=== PATIENT | male | born 1950 | race Caucasian/White ===

== ENCOUNTER 2017-01-04 21:53 | Inpatient (IN) | payer MEDICAID ==
[~2017-01-04] VITALS: Ht 180.3 cm; Wt 61.2 kg
[~2017-01-04 21:53] MED LIST: ACET325T14 PO; AMLO10TA2 PO; AMLO5TAB4 PO; AMOX1TAB64 PO; ASPI-496 PO; ATOR10TA PO; ATOR10TA9 PO; BACL-19 PO; BUSP5TAB2 PO; CHOL4PAC2 PO; CIPR500T87 PO; CLON-364 PO; CYAN10005 PO; CYAN100T PO; CYCL5TAB PO; ERGO500017 PO; FLUO40CA9 PO; FLUT9.9S NS; FOLI-17 PO; HYDR-3138 PO; HYDR-3144 PO; HYDR12.58 PO; LAMO200T PO; LAMO200T3 PO; LAMO25TB2 PO; LEVE500T53 PO; LISI-170 PO; LITH150C PO; LITH300T22 PO; LITH600C PO; LORA-445 PO; LORA-446 PO; LURA60TA PO; MAGN400T26 PO; METR500T PO; MIRT30TA PO; MULT-257 PO; MULT-750 PO; NICO1PAT5 TD; OMEP20CA9 PO; OMEP40CA6 PO; ONDA4TAB10 PO; OXYC-229 PO; OXYC-302 PO; OXYC1TAB7 PO; OXYC1TAB9 PO; OXYC5TAB3 PO; PANT40TA3 PO; PANT40TA5 PO; POLY17PO5 PO; PROC10TA PO; QUET100T PO; RAME8TAB8 PO; RANI-276 PO; SUCR1ORA11 PO; SUCR1ORA2 PO; SUCR1TAB PO; TAMS-11 PO; THIA100T6 PO; TRAZ100T15 PO; VANC1VIA3 PO
[2017-01-04] MEDS ORDERED: SODIUM CHLORIDE 0.9% 1,000ML IVBOLUS ONE (23:00)
[2017-01-04 23:51] LABS: ASPARTATE AMINO TRANSFERASE 94 U/L (15-37); BLOOD UREA NITROGEN 8 mg/dL (7-18)
[2017-01-05] MEDS ORDERED: POTASSIUM CHLORIDE 20 MEQ TAB.ER.PRT PO ONE
[2017-01-05] MEDS ORDERED: THIAMINE 100 MG/ML, 2ML IM ONE
[2017-01-05] MEDS ORDERED: ONDANSETRON 2MG/ML, 2ML IVP PRN (01:00)
[2017-01-05] MEDS ORDERED: BISACODYL 10 MG SUPP PR PRN (01:00)
[2017-01-05 01:45] VITALS: BP 148/76
[2017-01-05] MEDS: D5%-0.45% NACL 1,000 ML IV SCH ×6 (02:36→20:56)
[2017-01-05] MEDS: LORazepam 2 MG/ML, 1ML IVPush PRN (02:43)
[2017-01-05] MEDS: MORPHINE SULFATE 4 MG/ML, 1ML IVPush PRN ×2 (02:43→15:57)
[2017-01-05] MEDS: HEPARIN 5,000 UNITS/ML, 1ML SQ SCH ×3 (02:43→17:13)
[2017-01-05] MEDS: QUETIAPINE 200 MG TABLET PO SCH ×2 (03:28→20:57)
[2017-01-05] MEDS: NS + 20MEQ KCL 1,000 ML IV SCH ×4 (03:28→22:26)
[2017-01-05] MEDS: NICOTINE 14MG/24 HR PATCH.TD24 TD SCH (03:29)
[2017-01-05 03:32] LABS: DAU SCREEN DISCLAIMER
[2017-01-05] MEDS: POTASSIUM CHLORIDE 20 MEQ, MAGNESIUM SULFATE 2 GM, THIAMINE 100 MG, MVI ADULT 10 ML, FO... IV SCH (06:00)
[2017-01-05 06:21] LABS: ASPARTATE AMINO TRANSFERASE 80 U/L (15-37); BLOOD UREA NITROGEN 6 mg/dL (7-18)
[2017-01-05] MEDS ORDERED: POTASSIUM CHLORIDE 40 MEQ in SODIUM CHLORIDE 0.9% 500 ML IV ONE (07:00)
[2017-01-05 08:06] VITALS: BP 106/62
[2017-01-05] MEDS: LAMOTRIGINE 200 MG TABLET PO SCH (09:23)
[2017-01-05] MEDS: LITHIUM CARBONATE 150 MG CAPSULE PO SCH (09:24)
[2017-01-05] MEDS ORDERED: MAGNESIUM SULFATE PMX 2GM/50ML 50 ML IV ONE (11:00)
[2017-01-05] MEDS: POTASSIUM CHLORIDE 20 MEQ PACKET PO SCH ×2 (12:15→17:13)
[2017-01-05 13:40] VITALS: BP 136/89
[2017-01-05] MEDS: BACLOFEN 10 MG TABLET PO SCH ×2 (15:51→20:57)
[2017-01-05 20:25] VITALS: BP 154/90
[2017-01-06] MEDS: D5%-0.45% NACL 1,000 ML IV SCH ×6 (00:19→19:30)
[2017-01-06] MEDS: NS + 20MEQ KCL 1,000 ML IV SCH ×4 (00:20→23:08)
[2017-01-06] MEDS: NICOTINE 14MG/24 HR PATCH.TD24 TD SCH ×2 (00:41→20:19)
[2017-01-06] MEDS: HEPARIN 5,000 UNITS/ML, 1ML SQ SCH ×3 (00:41→17:54)
[2017-01-06] MEDS: MORPHINE SULFATE 4 MG/ML, 1ML IVPush PRN (00:44)
[2017-01-06] MEDS: LORazepam 2 MG/ML, 1ML IVPush PRN ×3 (01:00→23:53)
[2017-01-06 02:38] VITALS: BP 109/75
[2017-01-06] MEDS: POTASSIUM CHLORIDE 20 MEQ, MAGNESIUM SULFATE 2 GM, THIAMINE 100 MG, MVI ADULT 10 ML, FO... IV SCH (05:15)
[2017-01-06 05:27] LABS: BLOOD UREA NITROGEN 3 mg/dL (7-18)
[2017-01-06 08:53] VITALS: BP 121/86
[2017-01-06] MEDS: POTASSIUM CHLORIDE 20 MEQ PACKET PO SCH ×2 (09:19→20:19)
[2017-01-06] MEDS: LITHIUM CARBONATE 150 MG CAPSULE PO SCH (09:19)
[2017-01-06] MEDS: BACLOFEN 10 MG TABLET PO SCH ×3 (09:19→20:19)
[2017-01-06] MEDS: LAMOTRIGINE 200 MG TABLET PO SCH (09:19)
[2017-01-06 15:36] VITALS: BP 102/71
[2017-01-06 20:09] VITALS: BP 94/64
[2017-01-06] MEDS: QUETIAPINE 200 MG TABLET PO SCH (20:19)
[2017-01-07] MEDS: HEPARIN 5,000 UNITS/ML, 1ML SQ SCH ×3 (00:47→15:47)
[2017-01-07 02:56] VITALS: BP 105/59
[2017-01-07] MEDS: POTASSIUM CHLORIDE 20 MEQ, MAGNESIUM SULFATE 2 GM, THIAMINE 100 MG, MVI ADULT 10 ML, FO... IV SCH (02:59)
[2017-01-07] MEDS: NS + 20MEQ KCL 1,000 ML IV SCH (02:59)
[2017-01-07 05:29] LABS: BLOOD UREA NITROGEN 3 mg/dL (7-18)
[2017-01-07 07:31] VITALS: BP 103/67
[2017-01-07] MEDS: LAMOTRIGINE 200 MG TABLET PO SCH (08:55)
[2017-01-07] MEDS: LITHIUM CARBONATE 150 MG CAPSULE PO SCH (08:55)
[2017-01-07] MEDS: BACLOFEN 10 MG TABLET PO SCH ×2 (08:56→15:47)
[2017-01-07] MEDS ORDERED: FOLIC ACID 1 MG TABLET PO SCH (09:00)
[2017-01-07] MEDS ORDERED: MULTIVITAMIN 1 TABLET PO SCH (09:00)
[2017-01-07] MEDS ORDERED: THIAMINE 100MG TABLET PO SCH (09:00)
[2017-01-07] MEDS ORDERED: CYANOCOBALAMIN 1,000 MCG TABLET PO SCH (09:00)
[2017-01-07 12:48] VITALS: BP 113/87
[2017-01-07] MEDS ORDERED: FOLI-17 PO (17:18)
[2017-01-07] MEDS ORDERED: LORA-446 PO (17:18)
[2017-01-07] MEDS ORDERED: NICO1PAT4 TD (17:18)
[2017-01-07] MEDS ORDERED: Thiamine Hcl PO (17:18)
[2017-01-07] MEDS ORDERED: MULT1TAB60 PO (17:18)
[2017-01-07 17:48] VITALS: BP 135/94
[2017-01-07] MEDS ORDERED: LORazepam 1MG TABLET PO ONE (18:30)
[2017-01-07] MEDS ORDERED: LORazepam 1MG TABLET PO PRN (18:30)
== END 2017-01-07 20:45 | DRG 438 ==
LOC: ED 23:09 → EDIP 01-05 00:14 → 4NOR 01-05 01:15
PROVIDERS: ADMIT Internal Medicine
PROC: 0T9B70Z Drainage of Bladder with Drainage Device, Via Natural or Artificial Opening (ICD-10-PCS; principal; 2017-01-05)
DX: K85.20 Alcohol induced acute pancreatitis without necrosis or infection (principal); E43 Unspecified severe protein-calorie malnutrition; E44.0 Moderate protein-calorie malnutrition; D68.59 Other primary thrombophilia; Z68.1 Body mass index [BMI] 19.9 or less, adult; R62.7 Adult failure to thrive; F10.229 Alcohol dependence with intoxication, unspecified; D53.9 Nutritional anemia, unspecified; E16.2 Hypoglycemia, unspecified; E87.6 Hypokalemia; I45.10 Unspecified right bundle-branch block; I10 Essential (primary) hypertension; I48.0 Paroxysmal atrial fibrillation; K21.9 Gastro-esophageal reflux disease without esophagitis; F31.9 Bipolar disorder, unspecified; E55.9 Vitamin D deficiency, unspecified; Z91.19 Patient's noncompliance with other medical treatment and regimen; D69.59 Other secondary thrombocytopenia; E78.5 Hyperlipidemia, unspecified; Z82.49 Family history of ischemic heart disease and other diseases of the circulatory system; E78.00 Pure hypercholesterolemia, unspecified; F17.200 Nicotine dependence, unspecified, uncomplicated; G40.909 Epilepsy, unspecified, not intractable, without status epilepticus; Z91.81 History of falling; Y90.8 Blood alcohol level of 240 mg/100 ml or more; Z87.19 Personal history of other diseases of the digestive system; Z86.19 Personal history of other infectious and parasitic diseases
CPT/HCPCS: 36415; 70450; 71010; 72170; 80048; 80053; 80307; 81001; 82010; 82550; 82803; 83690; 83735; 83930; 84132; 85025; 93005; 99285; J1644; J2405; J3411; J3475; J3480; J7042; J2060; J7030; J7040

== ENCOUNTER 2017-02-07 16:55 | Emergency (ER) | payer SELFPAY ==
[~2017-02-07] VITALS: Ht 182.9 cm; Wt 66.0 kg
[~2017-02-07 16:55] MED LIST changes: +MULT1TAB60 PO; +NICO1PAT4 TD; +Thiamine Hcl PO
[2017-02-07] MEDS ORDERED: LITH600C PO (17:10)
[2017-02-07] MEDS ORDERED: SODIUM CHLORIDE 0.9% 1,000ML IVBOLUS ONE (17:30)
[2017-02-07] MEDS ORDERED: SODIUM CHLORIDE FLUSH 10ML SYR IVF ONE (17:30)
[2017-02-07] MEDS ORDERED: LORazepam 2 MG/ML, 1ML IVPush PRN (17:30)
[2017-02-07] MEDS ORDERED: LORazepam 2 MG/ML, 1ML ONE (17:44)
[2017-02-07 18:38] LABS: BLOOD UREA NITROGEN 8 mg/dL (7-18)
[2017-02-07 18:43] LABS: ASPARTATE AMINO TRANSFERASE 58 U/L (15-37)
[2017-02-07] MEDS ORDERED: POTASSIUM CHLORIDE 20 MEQ TAB.ER.PRT PO ONE ×2 (19:00→20:30)
[2017-02-07] MEDS ORDERED: MAGNESIUM SULFATE 1 GM in SODIUM CHLORIDE 0.9% 50 ML IV ONE (19:00)
[2017-02-07] MEDS ORDERED: POTASSIUM CHLORIDE 20 MEQ TAB.ER.PRT ONE ×2 (19:15→20:29)
[2017-02-07 19:23] VITALS: BP 135/85
== END 2017-02-07 21:57 | disposition home or self-care (01) ==
LOC: ED 17:52
DX: F10.220 Alcohol dependence with intoxication, uncomplicated (principal); E87.6 Hypokalemia
CPT/HCPCS: 36415; 80053; 80307; 83690; 85025; 96361; 96365; 96375; 99285; J2060; J3475; J7030

== ENCOUNTER 2017-02-08 01:49 | Emergency (ER) | payer SELFPAY ==
[~2017-02-08] VITALS: Ht 182.9 cm; Wt 67.0 kg
[2017-02-08] MEDS ORDERED: NITROGLYCERIN OINT 2%, 1GM TP ONE ×3 (02:24→02:36)
[2017-02-08] MEDS ORDERED: LORazepam 2 MG/ML, 1ML ONE (02:25)
[2017-02-08] MEDS ORDERED: NITROGLYCERIN SINGLE TAB 0.4 MG SL PRN (02:30)
[2017-02-08] MEDS ORDERED: LORazepam 2 MG/ML, 1ML IM ONE (02:30)
[2017-02-08] MEDS ORDERED: LORazepam 1MG TABLET ONE (03:08)
[2017-02-08 03:20] VITALS: BP 159/98
[2017-02-08] MEDS ORDERED: LORazepam 1MG TABLET PO ONE (03:30)
== END 2017-02-08 03:53 | disposition short-term general hospital (02) ==
LOC: ED 02:14
DX: F10.229 Alcohol dependence with intoxication, unspecified (principal); F10.239 Alcohol dependence with withdrawal, unspecified; G40.909 Epilepsy, unspecified, not intractable, without status epilepticus; E78.00 Pure hypercholesterolemia, unspecified
CPT/HCPCS: 93005; 96372; 99285; J2060

== ENCOUNTER 2017-03-27 01:00 | Emergency (ER) | payer MEDICAID ==
[~2017-03-27] VITALS: Ht 182.9 cm; Wt 73.0 kg
[2017-03-27 01:54] LABS: ASPARTATE AMINO TRANSFERASE 60 U/L (15-37); BLOOD UREA NITROGEN 16 mg/dL (7-18)
[2017-03-27] MEDS ORDERED: ONDANSETRON 2MG/ML, 2ML ONE (03:58)
[2017-03-27] MEDS ORDERED: ONDANSETRON 2MG/ML, 2ML IVPush ONE (04:00)
[2017-03-27] MEDS ORDERED: PROMETHAZINE 25 MG/ML, 1ML ONE (04:34)
[2017-03-27] MEDS ORDERED: PROMETHAZINE 25 MG/ML, 1ML IM ONE (05:00)
[2017-03-27] MEDS ORDERED: OMNIPAQUE 350 MG/ML, 100ML BOTTLE ONE (05:36)
[2017-03-27 05:53] VITALS: BP 154/84
[2017-03-27] MEDS ORDERED: LORazepam 1MG TABLET ONE (06:10)
[2017-03-27] MEDS ORDERED: LORazepam 1MG TABLET PO ONE (06:30)
== END 2017-03-27 06:58 | disposition home or self-care (01) ==
LOC: ED 03:34
DX: F10.220 Alcohol dependence with intoxication, uncomplicated (principal); F17.200 Nicotine dependence, unspecified, uncomplicated; I48.91 Unspecified atrial fibrillation; E78.5 Hyperlipidemia, unspecified; G89.29 Other chronic pain
CPT/HCPCS: 36415; 74020; 74177; 80053; 85025; 96372; 96374; 99285; J2405; J2550; Q9967

== ENCOUNTER 2017-03-28 23:33 | Inpatient (IN) | payer MEDICAID ==
[~2017-03-28] VITALS: Ht 182.9 cm; Wt 62.3 kg
[2017-03-29] MEDS ORDERED: SODIUM CHLORIDE FLUSH 10ML SYR IVF ONE (00:30)
[2017-03-29] MEDS ORDERED: MORPHINE SULFATE 4 MG/ML, 1ML IVPush ONE ×3 (00:30→02:30)
[2017-03-29] MEDS ORDERED: SODIUM CHLORIDE 0.9% 1,000ML IVBOLUS ONE (00:30)
[2017-03-29] MEDS ORDERED: MORPHINE SULFATE 4 MG/ML, 1ML ONE ×2 (00:31→02:07)
[2017-03-29 00:45] LABS: ASPARTATE AMINO TRANSFERASE 31 U/L (15-37); BLOOD UREA NITROGEN 23 mg/dL (7-18)
[2017-03-29 00:51] LABS: IS PT STATUS REG ER OR PRE ER? YES
[2017-03-29] MEDS ORDERED: LORazepam 1MG TABLET ONE (00:52)
[2017-03-29] MEDS ORDERED: LORazepam 1MG TABLET PO ONE (01:00)
[2017-03-29] MEDS ORDERED: POTASSIUM CHLORIDE 40 MEQ in SODIUM CHLORIDE 0.9% 500 ML IV ONE ×2 (01:00→04:00)
[2017-03-29] MEDS ORDERED: POTASSIUM CHLORIDE 20 MEQ TAB.ER.PRT PO ONE (01:00)
[2017-03-29] MEDS ORDERED: POTASSIUM CHLORIDE 20 MEQ TAB.ER.PRT ONE (01:02)
[2017-03-29] MEDS ORDERED: HEPARIN 25,000 UNITS/500ML PMX 500 ML ONE (01:44)
[2017-03-29] MEDS ORDERED: HEPARIN 5,000 UNITS/ML, 1ML ONE (01:44)
[2017-03-29] MEDS ORDERED: HEPARIN 25,000 UNITS/500ML PMX 500 ML IV PRN (02:00)
[2017-03-29] MEDS ORDERED: HEPARIN 5,000 UNITS/ML, 1ML IV PRN (02:00)
[2017-03-29] MEDS ORDERED: HEPARIN 5,000 UNITS/ML, 1ML IV ONE (02:00)
[2017-03-29] MEDS ORDERED: ACETAMINOPHEN 325 MG TABLET PO PRN (04:00)
[2017-03-29] MEDS ORDERED: ENALAPRILAT 1.25 MG/ML, 2ML IVPush PRN (04:00)
[2017-03-29] MEDS ORDERED: DOCUSATE 100 MG CAPSULE PO PRN (04:00)
[2017-03-29] MEDS ORDERED: LABETALOL 5MG/ML, 20ML IVPush PRN (04:00)
[2017-03-29] MEDS: NICOTINE 21 MG/24 HR PATCH.TD24 TD SCH (04:20)
[2017-03-29] MEDS: PANTOPROZOLE 40MG TABLET PO SCH ×2 (04:20→17:10)
[2017-03-29] MEDS: ONDANSETRON 2MG/ML, 2ML IVPush PRN ×2 (04:27→16:50)
[2017-03-29 04:58] VITALS: BP 148/88
[2017-03-29] MEDS ORDERED: ASPIRIN 325 MG TABLET EC PO SCH (06:00)
[2017-03-29] MEDS: CARVEDILOL 6.25 MG TABLET PO SCH ×2 (06:30→17:10)
[2017-03-29 07:07] LABS: IS PT STATUS REG ER OR PRE ER? NO
[2017-03-29] MEDS ORDERED: SODIUM PHOSPHATE 20 MMOL in SODIUM CHLORIDE 0.9% 500 ML IV ONE (07:30)
[2017-03-29] MEDS ORDERED: MAGNESIUM SULFATE PMX 4GM/100M 100 ML IV ONE (07:30)
[2017-03-29 07:39] VITALS: BP 143/88
[2017-03-29] MEDS: POTASSIUM CHLORIDE 20 MEQ TAB.ER.PRT PO SCH ×2 (08:00→16:43)
[2017-03-29] MEDS: LISINOPRIL 5 MG TABLET PO SCH (08:23)
[2017-03-29] MEDS: FAMOTIDINE 20 MG/2 ML IVPush SCH ×2 (08:24→22:07)
[2017-03-29] MEDS: LAMOTRIGINE 200 MG TABLET PO SCH (08:24)
[2017-03-29] MEDS: LORazepam 2 MG/ML, 1ML IVPush PRN ×2 (08:54→19:49)
[2017-03-29 09:34] LABS: BLOOD UREA NITROGEN 18 mg/dL (7-18)
[2017-03-29 13:58] VITALS: BP 118/68
[2017-03-29 14:20] LABS: IS PT STATUS REG ER OR PRE ER? NO
[2017-03-29 15:17] LABS: ANISOCYTOSIS 1+
[2017-03-29 15:18] LABS: LARGE PLATELETS 1+; POLYCHROMASIA 1+
[2017-03-29] MEDS: morphine SULFATE 10 MG/ML, 1ML IVPush PRN ×2 (17:20→19:48)
[2017-03-29 19:16] VITALS: BP 118/74
[2017-03-29] MEDS ORDERED: ATORVASTATIN 20 MG TABLET PO SCH (21:00)
[2017-03-29] MEDS: QUETIAPINE 200 MG TABLET PO SCH (22:08)
[2017-03-29] MEDS: LORazepam 1MG TABLET PO PRN (22:08)
[2017-03-29] MEDS: POTASSIUM CHLORIDE 20 MEQ, MAGNESIUM SULFATE 2 GM, THIAMINE 100 MG, MVI ADULT 10 ML, FO... IV SCH (23:39)
[2017-03-30 00:51] VITALS: BP 108/71
[2017-03-30] MEDS: NICOTINE 21 MG/24 HR PATCH.TD24 TD SCH (05:38)
[2017-03-30] MEDS: PANTOPROZOLE 40MG TABLET PO SCH (05:38)
[2017-03-30] MEDS: LORazepam 1MG TABLET PO PRN ×2 (05:38→17:52)
[2017-03-30] MEDS: CARVEDILOL 6.25 MG TABLET PO SCH (05:38)
[2017-03-30 06:25] LABS: ASPARTATE AMINO TRANSFERASE 29 U/L (15-37); BLOOD UREA NITROGEN 11 mg/dL (7-18)
[2017-03-30 08:37] VITALS: BP 106/68
[2017-03-30] MEDS: POTASSIUM CHLORIDE 20 MEQ TAB.ER.PRT PO SCH ×2 (08:42→17:52)
[2017-03-30] MEDS: LAMOTRIGINE 200 MG TABLET PO SCH (08:42)
[2017-03-30] MEDS: FAMOTIDINE 20 MG/2 ML IVPush SCH ×2 (08:42→21:00)
[2017-03-30] MEDS: LISINOPRIL 5 MG TABLET PO SCH (08:42)
[2017-03-30] MEDS ORDERED: OXYcodone/APAP 5/325MG TABLET PO PRN (09:30)
[2017-03-30] MEDS: OXYcodone/APAP 5/325MG TABLET PO PRN (10:19)
[2017-03-30] MEDS ORDERED: POTASSIUM CHLORIDE 40 MEQ in SODIUM CHLORIDE 0.9% 500 ML IV ONE (11:00)
[2017-03-30 13:27] LABS: BLOOD UREA NITROGEN 9 mg/dL (7-18)
[2017-03-30 15:02] VITALS: BP 122/79
[2017-03-30] MEDS ORDERED: PANTOPROZOLE 40MG TABLET PO SCH (17:00)
[2017-03-30] MEDS: ONDANSETRON 2MG/ML, 2ML IVPush PRN (18:15)
[2017-03-30 19:17] VITALS: BP 126/79
[2017-03-30] MEDS: PANTOPRAZOLE 40 MG IV IVPush SCH (20:59)
[2017-03-30] MEDS: QUETIAPINE 200 MG TABLET PO SCH (21:00)
[2017-03-30] MEDS: POTASSIUM CHLORIDE 20 MEQ, MAGNESIUM SULFATE 2 GM, THIAMINE 100 MG, MVI ADULT 10 ML, FO... IV SCH (23:33)
[2017-03-31 01:52] VITALS: BP 104/68
[2017-03-31] MEDS: PANTOPRAZOLE 40 MG IV IVPush SCH ×2 (05:09→17:24)
[2017-03-31] MEDS: NICOTINE 21 MG/24 HR PATCH.TD24 TD SCH (05:10)
[2017-03-31 05:51] LABS: BLOOD UREA NITROGEN 6 mg/dL (7-18)
[2017-03-31 05:56] LABS: ASPARTATE AMINO TRANSFERASE 46 U/L (15-37)
[2017-03-31 07:19] VITALS: BP 116/75
[2017-03-31] MEDS ORDERED: SODIUM PHOSPHATE 20 MMOL in SODIUM CHLORIDE 0.9% 500 ML IV ONE (08:30)
[2017-03-31] MEDS: LISINOPRIL 5 MG TABLET PO SCH (09:47)
[2017-03-31] MEDS: FAMOTIDINE 20 MG/2 ML IVPush SCH ×2 (09:47→22:53)
[2017-03-31] MEDS: LAMOTRIGINE 200 MG TABLET PO SCH (09:47)
[2017-03-31] MEDS: LORazepam 1MG TABLET PO PRN (09:52)
[2017-03-31] MEDS: OXYcodone/APAP 5/325MG TABLET PO PRN ×3 (12:02→22:52)
[2017-03-31 13:41] VITALS: BP 130/88
[2017-03-31 19:28] VITALS: BP 155/88
[2017-03-31 20:40] VITALS: BP 144/89
[2017-03-31] MEDS: QUETIAPINE 200 MG TABLET PO SCH (22:52)
[2017-03-31] MEDS: ONDANSETRON 2MG/ML, 2ML IVPush PRN (22:52)
[2017-04-01] MEDS: POTASSIUM CHLORIDE 20 MEQ, MAGNESIUM SULFATE 2 GM, THIAMINE 100 MG, MVI ADULT 10 ML, FO... IV SCH ×2 (00:49→23:04)
[2017-04-01 02:22] VITALS: BP 82/53
[2017-04-01] MEDS ORDERED: SODIUM CHLORIDE 0.9% 1,000ML IVBOLUS ONE (03:00)
[2017-04-01] MEDS: PANTOPRAZOLE 40 MG IV IVPush SCH (04:52)
[2017-04-01] MEDS: NICOTINE 21 MG/24 HR PATCH.TD24 TD SCH (04:54)
[2017-04-01 05:37] LABS: ASPARTATE AMINO TRANSFERASE 24 U/L (15-37); BLOOD UREA NITROGEN 11 mg/dL (7-18)
[2017-04-01 06:30] VITALS: BP 121/81
[2017-04-01 08:16] VITALS: BP 131/87
[2017-04-01] MEDS: LAMOTRIGINE 200 MG TABLET PO SCH (08:18)
[2017-04-01] MEDS: FAMOTIDINE 20 MG/2 ML IVPush SCH (08:22)
[2017-04-01] MEDS: LISINOPRIL 5 MG TABLET PO SCH (08:22)
[2017-04-01] MEDS: ONDANSETRON 2MG/ML, 2ML IVPush PRN ×2 (08:31→22:27)
[2017-04-01 14:24] VITALS: BP 127/78
[2017-04-01] MEDS: HEPARIN 5,000 UNITS/ML, 1ML SQ SCH (17:00)
[2017-04-01 19:45] VITALS: BP 131/79
[2017-04-01] MEDS: FAMOTIDINE 20 MG TABLET PO SCH (20:47)
[2017-04-01] MEDS: OXYcodone/APAP 5/325MG TABLET PO PRN (22:28)
[2017-04-01] MEDS: QUETIAPINE 200 MG TABLET PO SCH (23:04)
[2017-04-02 01:24] VITALS: BP 113/74
[2017-04-02] MEDS: NICOTINE 21 MG/24 HR PATCH.TD24 TD SCH (05:24)
[2017-04-02] MEDS: HEPARIN 5,000 UNITS/ML, 1ML SQ SCH ×2 (05:24→18:26)
[2017-04-02 06:45] VITALS: BP 127/89
[2017-04-02 06:51] VITALS: BP 137/78
[2017-04-02] MEDS: LAMOTRIGINE 200 MG TABLET PO SCH (08:20)
[2017-04-02] MEDS: FAMOTIDINE 20 MG TABLET PO SCH ×2 (08:20→21:26)
[2017-04-02] MEDS ORDERED: REGADENOSON 0.4 MG/5 ML SYRINGE ONE (09:39)
[2017-04-02 14:35] VITALS: BP 125/82
[2017-04-02 19:36] VITALS: BP 123/77
[2017-04-02] MEDS: QUETIAPINE 200 MG TABLET PO SCH (22:49)
[2017-04-03 01:21] VITALS: BP 138/81
[2017-04-03] MEDS: HEPARIN 5,000 UNITS/ML, 1ML SQ SCH ×2 (05:58→18:16)
[2017-04-03 07:00] VITALS: BP 150/86
[2017-04-03] MEDS: FAMOTIDINE 20 MG TABLET PO SCH ×2 (08:52→20:53)
[2017-04-03] MEDS: NICOTINE 21 MG/24 HR PATCH.TD24 TD SCH (08:52)
[2017-04-03] MEDS: LAMOTRIGINE 200 MG TABLET PO SCH (08:52)
[2017-04-03] MEDS: OXYcodone/APAP 5/325MG TABLET PO PRN ×2 (11:11→18:16)
[2017-04-03 13:36] VITALS: BP 130/81
[2017-04-03 20:05] VITALS: BP 156/74
[2017-04-03] MEDS: QUETIAPINE 200 MG TABLET PO SCH (21:59)
[2017-04-03] MEDS: TEMAZEPAM 15 MG CAPSULE PO PRN (21:59)
[2017-04-04 02:00] VITALS: BP 93/59
[2017-04-04 05:50] VITALS: BP 117/71
[2017-04-04 07:40] VITALS: BP 117/77
[2017-04-04] MEDS: HEPARIN 5,000 UNITS/ML, 1ML SQ SCH ×2 (09:00→16:42)
[2017-04-04] MEDS: FAMOTIDINE 20 MG TABLET PO SCH ×2 (09:33→21:05)
[2017-04-04] MEDS: NICOTINE 21 MG/24 HR PATCH.TD24 TD SCH (09:34)
[2017-04-04] MEDS: LAMOTRIGINE 200 MG TABLET PO SCH (11:00)
[2017-04-04 20:00] VITALS: BP 160/93
[2017-04-04] MEDS: QUETIAPINE 200 MG TABLET PO SCH (21:05)
[2017-04-04] MEDS: TEMAZEPAM 15 MG CAPSULE PO PRN (21:07)
[2017-04-05] MEDS: HEPARIN 5,000 UNITS/ML, 1ML SQ SCH ×3 (01:00→17:07)
[2017-04-05 08:29] VITALS: BP 129/81
[2017-04-05] MEDS: OXYcodone/APAP 5/325MG TABLET PO PRN ×2 (08:58→17:20)
[2017-04-05] MEDS: LAMOTRIGINE 200 MG TABLET PO SCH (08:58)
[2017-04-05] MEDS: FAMOTIDINE 20 MG TABLET PO SCH ×2 (08:58→21:54)
[2017-04-05] MEDS: NICOTINE 21 MG/24 HR PATCH.TD24 TD SCH (08:58)
[2017-04-05 19:37] VITALS: BP 145/79
[2017-04-05] MEDS: QUETIAPINE 200 MG TABLET PO SCH (21:54)
[2017-04-05] MEDS: TEMAZEPAM 15 MG CAPSULE PO PRN (22:17)
[2017-04-06] MEDS: HEPARIN 5,000 UNITS/ML, 1ML SQ SCH ×3 (01:00→16:50)
[2017-04-06 07:03] VITALS: BP 115/77
[2017-04-06] MEDS: LAMOTRIGINE 200 MG TABLET PO SCH (08:19)
[2017-04-06] MEDS: FAMOTIDINE 20 MG TABLET PO SCH ×2 (08:19→22:11)
[2017-04-06] MEDS: OXYcodone/APAP 5/325MG TABLET PO PRN ×2 (08:19→15:37)
[2017-04-06] MEDS: NICOTINE 21 MG/24 HR PATCH.TD24 TD SCH (08:19)
[2017-04-06 14:46] LABS: DAU SCREEN DISCLAIMER
[2017-04-06 20:06] VITALS: BP 152/91
[2017-04-06] MEDS: TEMAZEPAM 15 MG CAPSULE PO PRN (22:10)
[2017-04-06] MEDS: QUETIAPINE 200 MG TABLET PO SCH (22:11)
[2017-04-07] MEDS: HEPARIN 5,000 UNITS/ML, 1ML SQ SCH ×2 (01:00→09:36)
[2017-04-07] MEDS: OXYcodone/APAP 5/325MG TABLET PO PRN ×2 (01:16→09:36)
[2017-04-07 07:09] VITALS: BP 148/91
[2017-04-07] MEDS: FAMOTIDINE 20 MG TABLET PO SCH (09:36)
[2017-04-07] MEDS: LAMOTRIGINE 200 MG TABLET PO SCH (09:36)
[2017-04-07] MEDS: NICOTINE 21 MG/24 HR PATCH.TD24 TD SCH (09:41)
== END 2017-04-07 17:20 | DRG 391 ==
LOC: ED 03-29 00:40 → EDIP 03-29 02:00 → 5SO 03-29 03:45 → 4EST 03-31 20:37 → 4WST 04-02 18:10 → 4EST 04-02 21:56 → 3E 04-04 05:44
PROVIDERS: ADMIT Internal Medicine; ATTEND Internal Medicine
DX: K29.20 Alcoholic gastritis without bleeding (principal); K22.6 Gastro-esophageal laceration-hemorrhage syndrome; R45.851 Suicidal ideations; F10.229 Alcohol dependence with intoxication, unspecified; E87.6 Hypokalemia; D64.9 Anemia, unspecified; E78.5 Hyperlipidemia, unspecified; F31.9 Bipolar disorder, unspecified; I10 Essential (primary) hypertension; I48.0 Paroxysmal atrial fibrillation; E83.39 Other disorders of phosphorus metabolism; E86.0 Dehydration; I95.9 Hypotension, unspecified; E83.42 Hypomagnesemia; F17.210 Nicotine dependence, cigarettes, uncomplicated; D69.59 Other secondary thrombocytopenia; Z79.899 Other long term (current) drug therapy; Z71.6 Tobacco abuse counseling; Z82.5 Family history of asthma and other chronic lower respiratory diseases; Z82.49 Family history of ischemic heart disease and other diseases of the circulatory system; Z80.52 Family history of malignant neoplasm of bladder; K21.0 Gastro-esophageal reflux disease with esophagitis
CPT/HCPCS: 36415; 71010; 74000; 78452; 80048; 80053; 80061; 80307; 82607; 82746; 83540; 83550; 83690; 83735; 84100; 84439; 84443; 84484; 85025; 85520; 85610; 85730; 93005; 93017; 93306; 96361; 96365; 96375; 96376; J1644; J2405; J2785; J3411; J3475; J3480; J7042; A9502; C9113; C9898; J2060; J2270; J7030; J7040; S0028

== ENCOUNTER 2017-05-21 16:44 | Inpatient (IN) | payer MEDICAID ==
[~2017-05-21] VITALS: Ht 182.9 cm; Wt 71.2 kg
[~2017-05-21 16:44] MED LIST changes: -HYDR-3138 PO; -HYDR-3144 PO; +HYDR-3237 PO; +HYDR-3245 PO; +NICO1PAT13 TD; +NICO1PAT16 TD; -NICO1PAT4 TD; -NICO1PAT5 TD; -OXYC-229 PO; +OXYC-307 PO; +RAME8TAB19 PO; -RAME8TAB8 PO; -SUCR1ORA2 PO; +SUCR1ORA5 PO
[2017-05-21] MEDS ORDERED: SODIUM CHLORIDE 0.9% 1,000 ML IV ONE (17:09)
[2017-05-21] MEDS ORDERED: FAMOTIDINE 20 MG/2 ML IVP ONE (17:30)
[2017-05-21] MEDS ORDERED: MORPHINE SULFATE 4 MG/ML, 1ML IVPush PRN (17:30)
[2017-05-21] MEDS ORDERED: SODIUM CHLORIDE 0.9% 1,000ML IVBOLUS ONE ×2 (17:30→18:30)
[2017-05-21] MEDS ORDERED: MAALOX/HYOSCYAMINE/LIDOCAINE 45 ML BTL PO ONE (17:30)
[2017-05-21] MEDS ORDERED: ONDANSETRON 2MG/ML, 2ML IVPush ONE ×2 (17:30→20:00)
[2017-05-21] MEDS ORDERED: FAMOTIDINE 20 MG/2 ML ONE (17:31)
[2017-05-21] MEDS ORDERED: ONDANSETRON 2MG/ML, 2ML ONE ×2 (17:31→19:57)
[2017-05-21] MEDS ORDERED: MORPHINE SULFATE 4 MG/ML, 1ML ONE (17:31)
[2017-05-21] MEDS ORDERED: MAALOX/HYOSCYAMINE/LIDOCAINE 45 ML BTL ONE (17:31)
[2017-05-21 17:43] LABS: HEMATOCRIT 38.7 % (39.2-51.8); WHITE BLOOD COUNT 26.4 x10^3/uL (3.4-10)
[2017-05-21 17:55] LABS: BLOOD UREA NITROGEN 13 mg/dL (7-18)
[2017-05-21 18:01] LABS: ASPARTATE AMINO TRANSFERASE 18 U/L (15-37)
[2017-05-21 18:02] LABS: DIFF TOTAL CELLS COUNTED 100 CELL DIFF
[2017-05-21 18:04] LABS: VERIFY COUNTS? YES
[2017-05-21 18:05] LABS: ANISOCYTOSIS 1+
[2017-05-21] MEDS ORDERED: NS + 40MEQ KCL 1,000 ML IV SCH (18:30)
[2017-05-21] MEDS ORDERED: OMNIPAQUE 350 MG/ML, 100ML BOTTLE ONE (18:44)
[2017-05-21] MEDS ORDERED: NS + 40MEQ KCL 1,000 ML IV ONE (19:10)
[2017-05-21] MEDS ORDERED: LORazepam 2 MG/ML, 1ML ONE (19:57)
[2017-05-21] MEDS ORDERED: LORazepam 2 MG/ML, 1ML IVPush ONE (20:00)
[2017-05-21] MEDS ORDERED: CEFTRIAXONE PMX 1GM/50ML 50 ML ONE (20:53)
[2017-05-21] MEDS ORDERED: ACETAMINOPHEN 325 MG TABLET PO PRN (21:00)
[2017-05-21] MEDS ORDERED: DOCUSATE 100 MG CAPSULE PO PRN (21:00)
[2017-05-21] MEDS ORDERED: ENOXAPARIN 40 MG/0.4 ML SQ SCH (21:00)
[2017-05-21] MEDS ORDERED: FAMOTIDINE 20 MG TABLET PO SCH (21:00)
[2017-05-21] MEDS ORDERED: POLYETHYLENE GLYCOL 17 GM PACKET PO PRN (21:00)
[2017-05-21] MEDS ORDERED: PROMETHAZINE 25 MG/ML, 1ML IM PRN (21:00)
[2017-05-21] MEDS ORDERED: LORazepam 1MG TABLET PO PRN (21:00)
[2017-05-21] MEDS ORDERED: CEFTRIAXONE PMX 1GM/50ML 50 ML IV SCH (21:00)
[2017-05-21 22:15] VITALS: BP 144/88
[2017-05-21] MEDS: NICOTINE 14MG/24 HR PATCH.TD24 TD SCH (22:55)
[2017-05-21] MEDS: morphine SULFATE 10 MG/ML, 1ML IVPush PRN (23:19)
[2017-05-21] MEDS: QUETIAPINE 100MG TABLET PO SCH (23:47)
[2017-05-22 02:01] VITALS: BP 111/57
[2017-05-22] MEDS: NS + 20MEQ KCL 1,000 ML IV SCH ×2 (03:54→10:04)
[2017-05-22 05:42] LABS: HEMATOCRIT 31.9 % (39.2-51.8); HEMOGLOBIN 10.5 g/dL (13.7-18.0); WHITE BLOOD COUNT 22.6 x10^3/uL (3.4-10)
[2017-05-22 05:53] LABS: BLOOD UREA NITROGEN 14 mg/dL (7-18)
[2017-05-22 06:05] LABS: DIFF TOTAL CELLS COUNTED 100 CELL DIFF
[2017-05-22 06:06] LABS: ANISOCYTOSIS 1+; VERIFY COUNTS? YES
[2017-05-22] MEDS: morphine SULFATE 10 MG/ML, 1ML IVPush PRN ×4 (07:48→21:06)
[2017-05-22 07:55] VITALS: BP 113/62
[2017-05-22] MEDS ORDERED: VANCOMYCIN PMX 1GM/200ML 200 ML IV ONE (09:00)
[2017-05-22] MEDS ORDERED: PHARMACOKINETIC CONSULTATION MC ONE (09:00)
[2017-05-22] MEDS ORDERED: PHARMACOKINETIC MONITORING MC PRN (09:00)
[2017-05-22] MEDS ORDERED: VANCOMYCIN PER PHARMACY MC PRN (09:00)
[2017-05-22] MEDS: SUCRALFATE 1 GM/10 ML UDC PO SCH ×3 (10:03→21:07)
[2017-05-22] MEDS: LAMOTRIGINE 200 MG TABLET PO SCH (10:04)
[2017-05-22] MEDS: PANTOPRAZOLE 40 MG IV IVPush SCH ×2 (10:04→21:07)
[2017-05-22] MEDS: PIPERACILLIN/TAZO/PMX 3.375GM 50 ML IV SCH ×3 (10:05→22:40)
[2017-05-22] MEDS: VANCOMYCIN 1,200 MG in SODIUM CHLORIDE 0.9% 250 ML IV SCH ×2 (10:49→23:16)
[2017-05-22] MEDS ORDERED: POTASSIUM CHLORIDE 10 MEQ, MVI ADULT 10 ML, FOLIC ACID 1 MG, MAGNESIUM SULFATE 1 GM in ... IV SCH ×2 (11:46→12:30)
[2017-05-22] MEDS ORDERED: LORazepam 2 MG/ML, 1ML IV PRN ×4 (12:00)
[2017-05-22] MEDS ORDERED: LORazepam 0.5MG TABLET PO PRN (12:00)
[2017-05-22] MEDS ORDERED: LORazepam 1MG TABLET PO PRN ×2 (12:00)
[2017-05-22] MEDS ORDERED: [UNRECOGNIZED DRUG - MIXTURE] MC SCH (12:30)
[2017-05-22] MEDS ORDERED: D5%-0.9% NACL+KCL 20MEQ 1,000 ML IV SCH (13:00)
[2017-05-22 13:50] VITALS: BP 107/67
[2017-05-22 20:00] VITALS: BP 116/68
[2017-05-22] MEDS: NICOTINE 14MG/24 HR PATCH.TD24 TD SCH (21:07)
[2017-05-22] MEDS: QUETIAPINE 100MG TABLET PO SCH (21:07)
[2017-05-23] MEDS: LORazepam 2 MG/ML, 1ML IV PRN ×2 (00:49→04:24)
[2017-05-23] MEDS: ONDANSETRON 2MG/ML, 2ML IVPush PRN (00:49)
[2017-05-23 02:00] VITALS: BP 111/61
[2017-05-23] MEDS: SUCRALFATE 1 GM/10 ML UDC PO SCH ×4 (03:14→21:54)
[2017-05-23] MEDS: PIPERACILLIN/TAZO/PMX 3.375GM 50 ML IV SCH ×4 (04:24→21:55)
[2017-05-23 05:22] LABS: HEMATOCRIT 29.6 % (39.2-51.8); HEMOGLOBIN 9.7 g/dL (13.7-18.0); WHITE BLOOD COUNT 14.9 x10^3/uL (3.4-10)
[2017-05-23 05:29] LABS: BLOOD UREA NITROGEN 12 mg/dL (7-18)
[2017-05-23] MEDS: PANTOPRAZOLE 40 MG IV IVPush SCH ×2 (08:14→21:54)
[2017-05-23] MEDS: LAMOTRIGINE 200 MG TABLET PO SCH (08:14)
[2017-05-23] MEDS: VANCOMYCIN 1,200 MG in SODIUM CHLORIDE 0.9% 250 ML IV SCH ×2 (11:04→22:50)
[2017-05-23] MEDS ORDERED: POTASSIUM CHLORIDE 10% 40 MEQ/30 ML UDC PO ONE (12:00)
[2017-05-23] MEDS: THIAMINE 100MG TABLET PO SCH (13:54)
[2017-05-23] MEDS: FOLIC ACID 1 MG TABLET PO SCH (13:54)
[2017-05-23] MEDS: MULTIVITAMIN 1 TABLET PO SCH (13:54)
[2017-05-23 15:35] VITALS: BP 137/86
[2017-05-23 19:14] VITALS: BP 132/82
[2017-05-23] MEDS ORDERED: L. ACIDOPHILUS/B. ANIMALIS/FOS PACKET PO SCH (21:00)
[2017-05-23] MEDS: NICOTINE 14MG/24 HR PATCH.TD24 TD SCH (21:53)
[2017-05-23] MEDS: QUETIAPINE 100MG TABLET PO SCH (21:54)
[2017-05-23] MEDS: morphine SULFATE 10 MG/ML, 1ML IVPush PRN (21:55)
[2017-05-24] MEDS: metroNIDAZOLE 500 MG TABLET PO SCH ×4 (01:54→22:36)
[2017-05-24 02:02] VITALS: BP 101/61
[2017-05-24] MEDS: morphine SULFATE 10 MG/ML, 1ML IVPush PRN ×3 (02:15→22:37)
[2017-05-24] MEDS: SUCRALFATE 1 GM/10 ML UDC PO SCH ×5 (03:55→23:54)
[2017-05-24] MEDS: PIPERACILLIN/TAZO/PMX 3.375GM 50 ML IV SCH ×2 (03:56→10:23)
[2017-05-24 05:38] LABS: HEMATOCRIT 29.4 % (39.2-51.8); HEMOGLOBIN 9.9 g/dL (13.7-18.0); WHITE BLOOD COUNT 8.3 x10^3/uL (3.4-10)
[2017-05-24 05:49] LABS: BLOOD UREA NITROGEN 4 mg/dL (7-18)
[2017-05-24 07:21] VITALS: BP 119/79
[2017-05-24] MEDS: PANTOPRAZOLE 40 MG IV IVPush SCH (10:21)
[2017-05-24] MEDS: FOLIC ACID 1 MG TABLET PO SCH (10:22)
[2017-05-24] MEDS: LACTOBACILLUS 1GM/ PACKET PO SCH ×2 (10:22→22:36)
[2017-05-24] MEDS: LAMOTRIGINE 200 MG TABLET PO SCH (10:22)
[2017-05-24] MEDS: MULTIVITAMIN 1 TABLET PO SCH (10:23)
[2017-05-24] MEDS: THIAMINE 100MG TABLET PO SCH (10:23)
[2017-05-24] MEDS: VANCOMYCIN 1,200 MG in SODIUM CHLORIDE 0.9% 250 ML IV SCH (11:58)
[2017-05-24 12:49] VITALS: BP 123/70
[2017-05-24] MEDS: POTASSIUM CHLORIDE 20 MEQ TAB.ER.PRT PO SCH ×2 (14:48→17:47)
[2017-05-24 19:26] VITALS: BP 127/82
[2017-05-24] MEDS: NICOTINE 14MG/24 HR PATCH.TD24 TD SCH (22:36)
[2017-05-24] MEDS: PANTOPROZOLE 40MG TABLET PO SCH (22:36)
[2017-05-24] MEDS: QUETIAPINE 100MG TABLET PO SCH (22:36)
[2017-05-24] MEDS: ONDANSETRON 2MG/ML, 2ML IVPush PRN (22:37)
[2017-05-25 02:28] VITALS: BP 126/77
[2017-05-25] MEDS: SUCRALFATE 1 GM/10 ML UDC PO SCH ×4 (03:38→22:23)
[2017-05-25 05:02] LABS: HEMOGLOBIN 10.3 g/dL (13.7-18.0); WHITE BLOOD COUNT 8.5 x10^3/uL (3.4-10)
[2017-05-25 05:11] LABS: BLOOD UREA NITROGEN 7 mg/dL (7-18)
[2017-05-25] MEDS: morphine SULFATE 10 MG/ML, 1ML IVPush PRN ×4 (06:35→22:30)
[2017-05-25 08:49] VITALS: BP 116/80
[2017-05-25] MEDS: POTASSIUM CHLORIDE 20 MEQ TAB.ER.PRT PO SCH ×2 (10:00→13:51)
[2017-05-25] MEDS: TAMSULOSIN 0.4 MG CAP.ER.24H PO SCH (10:04)
[2017-05-25] MEDS: LACTOBACILLUS 1GM/ PACKET PO SCH ×2 (10:04→22:23)
[2017-05-25] MEDS: LAMOTRIGINE 200 MG TABLET PO SCH (10:04)
[2017-05-25] MEDS: metroNIDAZOLE 500 MG TABLET PO SCH ×3 (10:04→22:23)
[2017-05-25] MEDS: FOLIC ACID 1 MG TABLET PO SCH (10:04)
[2017-05-25] MEDS: MULTIVITAMIN 1 TABLET PO SCH (10:04)
[2017-05-25] MEDS: THIAMINE 100MG TABLET PO SCH (10:04)
[2017-05-25] MEDS: PANTOPROZOLE 40MG TABLET PO SCH ×2 (10:04→22:24)
[2017-05-25 14:15] VITALS: BP 124/79
[2017-05-25 19:50] VITALS: BP 142/98
[2017-05-25] MEDS: QUETIAPINE 100MG TABLET PO SCH (22:24)
[2017-05-25] MEDS: NICOTINE 14MG/24 HR PATCH.TD24 TD SCH (22:24)
[2017-05-25] MEDS: ONDANSETRON 2MG/ML, 2ML IVPush PRN (22:25)
[2017-05-26 03:57] VITALS: BP 124/69
[2017-05-26] MEDS: SUCRALFATE 1 GM/10 ML UDC PO SCH ×4 (04:00→22:17)
[2017-05-26 05:36] LABS: BLOOD UREA NITROGEN 8 mg/dL (7-18)
[2017-05-26 05:43] LABS: HEMATOCRIT 31.3 % (39.2-51.8); HEMOGLOBIN 10.3 g/dL (13.7-18.0); WHITE BLOOD COUNT 7.5 x10^3/uL (3.4-10)
[2017-05-26 07:27] VITALS: BP 131/71
[2017-05-26] MEDS: morphine SULFATE 10 MG/ML, 1ML IVPush PRN ×3 (09:30→22:13)
[2017-05-26] MEDS: THIAMINE 100MG TABLET PO SCH (09:31)
[2017-05-26] MEDS: FOLIC ACID 1 MG TABLET PO SCH (09:31)
[2017-05-26] MEDS: metroNIDAZOLE 500 MG TABLET PO SCH ×3 (09:31→22:19)
[2017-05-26] MEDS: LACTOBACILLUS 1GM/ PACKET PO SCH ×2 (09:31→22:18)
[2017-05-26] MEDS: PANTOPROZOLE 40MG TABLET PO SCH ×2 (09:31→22:19)
[2017-05-26] MEDS: MULTIVITAMIN 1 TABLET PO SCH (09:32)
[2017-05-26] MEDS: LAMOTRIGINE 200 MG TABLET PO SCH (09:32)
[2017-05-26] MEDS: TAMSULOSIN 0.4 MG CAP.ER.24H PO SCH (09:32)
[2017-05-26 12:44] VITALS: BP 148/87
[2017-05-26 19:41] VITALS: BP 151/96
[2017-05-26] MEDS: NICOTINE 14MG/24 HR PATCH.TD24 TD SCH (22:19)
[2017-05-26] MEDS: QUETIAPINE 100MG TABLET PO SCH (22:19)
[2017-05-27 00:30] VITALS: BP 112/69
[2017-05-27] MEDS: SUCRALFATE 1 GM/10 ML UDC PO SCH ×4 (03:29→21:07)
[2017-05-27] MEDS: morphine SULFATE 10 MG/ML, 1ML IVPush PRN ×2 (05:33→09:54)
[2017-05-27 08:04] VITALS: BP 126/76
[2017-05-27] MEDS: TAMSULOSIN 0.4 MG CAP.ER.24H PO SCH (09:31)
[2017-05-27] MEDS: LACTOBACILLUS 1GM/ PACKET PO SCH ×2 (09:31→21:06)
[2017-05-27] MEDS: THIAMINE 100MG TABLET PO SCH (09:31)
[2017-05-27] MEDS: MULTIVITAMIN 1 TABLET PO SCH (09:31)
[2017-05-27] MEDS: metroNIDAZOLE 500 MG TABLET PO SCH ×3 (09:31→21:06)
[2017-05-27] MEDS: PANTOPROZOLE 40MG TABLET PO SCH ×2 (09:32→21:07)
[2017-05-27] MEDS: FOLIC ACID 1 MG TABLET PO SCH (09:41)
[2017-05-27] MEDS: LAMOTRIGINE 200 MG TABLET PO SCH (09:54)
[2017-05-27] MEDS: OXYcodone IR 5MG TABLET PO PRN ×3 (11:16→21:22)
[2017-05-27 14:15] VITALS: BP 120/73
[2017-05-27 20:02] VITALS: BP 123/73
[2017-05-27] MEDS: NICOTINE 14MG/24 HR PATCH.TD24 TD SCH (21:06)
[2017-05-27] MEDS: QUETIAPINE 100MG TABLET PO SCH (21:07)
[2017-05-28 01:21] VITALS: BP 100/63
[2017-05-28] MEDS: OXYcodone IR 5MG TABLET PO PRN ×4 (02:34→20:06)
[2017-05-28] MEDS: SUCRALFATE 1 GM/10 ML UDC PO SCH ×4 (02:36→20:06)
[2017-05-28 05:23] LABS: HEMATOCRIT 33.2 % (39.2-51.8); HEMOGLOBIN 10.8 g/dL (13.7-18.0); WHITE BLOOD COUNT 9.2 x10^3/uL (3.4-10)
[2017-05-28 05:34] LABS: BLOOD UREA NITROGEN 14 mg/dL (7-18)
[2017-05-28 07:23] VITALS: BP 112/68
[2017-05-28] MEDS: TAMSULOSIN 0.4 MG CAP.ER.24H PO SCH (09:07)
[2017-05-28] MEDS: metroNIDAZOLE 500 MG TABLET PO SCH ×3 (09:07→20:06)
[2017-05-28] MEDS: MULTIVITAMIN 1 TABLET PO SCH (09:07)
[2017-05-28] MEDS: LAMOTRIGINE 200 MG TABLET PO SCH (09:07)
[2017-05-28] MEDS: LACTOBACILLUS 1GM/ PACKET PO SCH ×2 (09:07→20:06)
[2017-05-28] MEDS: FOLIC ACID 1 MG TABLET PO SCH (09:07)
[2017-05-28] MEDS: THIAMINE 100MG TABLET PO SCH (09:07)
[2017-05-28] MEDS: PANTOPROZOLE 40MG TABLET PO SCH ×2 (09:07→20:06)
[2017-05-28 13:50] VITALS: BP 116/72
[2017-05-28] MEDS: NICOTINE 14MG/24 HR PATCH.TD24 TD SCH (20:06)
[2017-05-28] MEDS: QUETIAPINE 100MG TABLET PO SCH (20:06)
[2017-05-28 20:59] VITALS: BP 136/81
[2017-05-29] MEDS: OXYcodone IR 5MG TABLET PO PRN ×2 (01:12→09:21)
[2017-05-29 03:09] VITALS: BP 94/62
[2017-05-29] MEDS: SUCRALFATE 1 GM/10 ML UDC PO SCH ×2 (03:09→09:21)
[2017-05-29 08:00] VITALS: BP 126/79
[2017-05-29] MEDS: LACTOBACILLUS 1GM/ PACKET PO SCH (09:20)
[2017-05-29] MEDS: LAMOTRIGINE 200 MG TABLET PO SCH (09:21)
[2017-05-29] MEDS: TAMSULOSIN 0.4 MG CAP.ER.24H PO SCH (09:21)
[2017-05-29] MEDS: MULTIVITAMIN 1 TABLET PO SCH (09:21)
[2017-05-29] MEDS: THIAMINE 100MG TABLET PO SCH (09:21)
[2017-05-29] MEDS: FOLIC ACID 1 MG TABLET PO SCH (09:21)
[2017-05-29] MEDS: PANTOPROZOLE 40MG TABLET PO SCH (09:21)
[2017-05-29] MEDS: metroNIDAZOLE 500 MG TABLET PO SCH (09:21)
[2017-05-29] MEDS ORDERED: SUCR1TAB33 PO (10:25)
[2017-05-29] MEDS ORDERED: THIA100T6 PO (10:25)
[2017-05-29] MEDS ORDERED: METR500T PO (10:25)
[2017-05-29] MEDS ORDERED: TAMS-11 PO (10:25)
[2017-05-29] MEDS ORDERED: FOLI-17 PO (10:25)
[2017-05-29] MEDS ORDERED: MULT1TAB60 PO (10:25)
[2017-05-29 12:50] VITALS: BP 126/76
== END 2017-05-29 13:00 | disposition home or self-care (01) | DRG 872 ==
LOC: ED 18:59 → EDIP 20:27 → SUATTDRO 20:28 → 4NOR 21:54
PROVIDERS: ADMIT Family Medicine; ATTEND Family Medicine
DX: A41.9 Sepsis, unspecified organism (principal); A04.7 Enterocolitis due to Clostridium difficile; K70.9 Alcoholic liver disease, unspecified; E86.0 Dehydration; I10 Essential (primary) hypertension; I48.91 Unspecified atrial fibrillation; F10.239 Alcohol dependence with withdrawal, unspecified; E78.5 Hyperlipidemia, unspecified; E87.6 Hypokalemia; F17.200 Nicotine dependence, unspecified, uncomplicated; F31.9 Bipolar disorder, unspecified; G40.909 Epilepsy, unspecified, not intractable, without status epilepticus; K21.9 Gastro-esophageal reflux disease without esophagitis; K22.70 Barrett's esophagus without dysplasia; G89.29 Other chronic pain; Y90.9 Presence of alcohol in blood, level not specified; I45.10 Unspecified right bundle-branch block; M54.9 Dorsalgia, unspecified; Z78.9 Other specified health status; Z82.49 Family history of ischemic heart disease and other diseases of the circulatory system
CPT/HCPCS: 36415; 71010; 74177; 76700; 80048; 80053; 80202; 80307; 81001; 83605; 83690; 83735; 83880; 84145; 84484; 85025; 85610; 87040; 87324; 87493; 89055; 93005; 96361; 96374; 96375; 96376; J0696; J1650; J2405; J2543; J2550; J3370; J3475; J3480; Q9967; C9113; J2060; J2270; J7030; J7050; S0028

== ENCOUNTER 2017-06-01 04:24 | Inpatient (IN) | payer MEDICAID ==
[~2017-06-01] VITALS: Ht 182.9 cm; Wt 72.8 kg
[~2017-06-01 04:24] MED LIST changes: +SUCR1TAB33 PO
[2017-06-01] MEDS ORDERED: SODIUM CHLORIDE 0.9% 1,000 ML IV ONE (05:37)
[2017-06-01] MEDS ORDERED: PLEASE ENTER HEIGHT AND WEIGHT MC SCH (06:00)
[2017-06-01] MEDS ORDERED: ONDANSETRON 2MG/ML, 2ML IVPush ONE (06:00)
[2017-06-01] MEDS ORDERED: SODIUM CHLORIDE 0.9% 1,000ML IVBOLUS ONE (06:00)
[2017-06-01 06:26] LABS: HEMATOCRIT 33.7 % (39.2-51.8); HEMOGLOBIN 11.1 g/dL (13.7-18.0); WHITE BLOOD COUNT 10.1 x10^3/uL (3.4-10)
[2017-06-01 06:33] LABS: ASPARTATE AMINO TRANSFERASE 11 U/L (15-37); BLOOD UREA NITROGEN 8 mg/dL (7-18)
[2017-06-01] MEDS ORDERED: ONDANSETRON 2MG/ML, 2ML ONE (06:40)
[2017-06-01] MEDS ORDERED: metroNIDAZOLE 500 MG TABLET ONE (08:04)
[2017-06-01] MEDS ORDERED: metroNIDAZOLE 500 MG TABLET PO ONE (08:30)
[2017-06-01] MEDS: PANTOPROZOLE 40MG TABLET PO SCH ×2 (08:30→20:30)
[2017-06-01] MEDS ORDERED: hydrALAzine 20 MG/ML, 1ML IVPush PRN (08:30)
[2017-06-01] MEDS ORDERED: ONDANSETRON 2MG/ML, 2ML IVPush PRN (08:30)
[2017-06-01] MEDS: LAMOTRIGINE 200 MG TABLET PO SCH (09:00)
[2017-06-01] MEDS: FOLIC ACID 1 MG TABLET PO SCH (09:00)
[2017-06-01] MEDS: THIAMINE 100MG TABLET PO SCH (09:00)
[2017-06-01] MEDS: TAMSULOSIN 0.4 MG CAP.ER.24H PO SCH (09:00)
[2017-06-01] MEDS: MULTIVITAMIN 1 TABLET PO SCH (09:00)
[2017-06-01 09:10] VITALS: BP 139/83
[2017-06-01] MEDS: metroNIDAZOLE 500 MG TABLET PO SCH ×2 (10:27→16:58)
[2017-06-01] MEDS: morphine SULFATE 10 MG/ML, 1ML IVPush PRN ×4 (10:27→22:36)
[2017-06-01] MEDS: NICOTINE 21 MG/24 HR PATCH.TD24 TD SCH (10:27)
[2017-06-01] MEDS: SUCRALFATE 1 GM TABLET PO SCH ×3 (11:00→21:00)
[2017-06-01] MEDS: SODIUM CHLORIDE 0.9% 1,000 ML IV SCH ×2 (12:53→19:23)
[2017-06-01] MEDS: PANTOPRAZOLE 40 MG IV IVPush SCH ×2 (16:58→22:36)
[2017-06-01 17:06] VITALS: BP 157/71
[2017-06-01 20:30] VITALS: BP 121/94
[2017-06-01] MEDS: QUETIAPINE 100MG TABLET PO SCH (22:37)
[2017-06-02] MEDS: metroNIDAZOLE 500 MG TABLET PO SCH ×3 (01:48→15:47)
[2017-06-02 01:52] VITALS: BP 101/56
[2017-06-02] MEDS: morphine SULFATE 10 MG/ML, 1ML IVPush PRN ×2 (04:43→09:21)
[2017-06-02 05:43] LABS: BLOOD UREA NITROGEN 6 mg/dL (7-18)
[2017-06-02 05:46] LABS: ASPARTATE AMINO TRANSFERASE 9 U/L (15-37)
[2017-06-02 05:54] LABS: HEMATOCRIT 30.4 % (39.2-51.8); WHITE BLOOD COUNT 7.3 x10^3/uL (3.4-10)
[2017-06-02 07:41] VITALS: BP 123/78
[2017-06-02] MEDS: SUCRALFATE 1 GM TABLET PO SCH ×4 (07:44→22:13)
[2017-06-02] MEDS: SODIUM CHLORIDE 0.9% 1,000 ML IV SCH ×3 (07:45→18:23)
[2017-06-02] MEDS: MULTIVITAMIN 1 TABLET PO SCH (09:20)
[2017-06-02] MEDS: THIAMINE 100MG TABLET PO SCH (09:20)
[2017-06-02] MEDS: PANTOPROZOLE 40MG TABLET PO SCH ×2 (09:21→22:13)
[2017-06-02] MEDS: FOLIC ACID 1 MG TABLET PO SCH (09:21)
[2017-06-02] MEDS: TAMSULOSIN 0.4 MG CAP.ER.24H PO SCH (09:21)
[2017-06-02] MEDS: LAMOTRIGINE 200 MG TABLET PO SCH (09:21)
[2017-06-02] MEDS: NICOTINE 21 MG/24 HR PATCH.TD24 TD SCH (10:48)
[2017-06-02] MEDS: OXYcodone/APAP 5/325MG TABLET PO PRN ×3 (13:50→22:17)
[2017-06-02 15:08] VITALS: BP 120/79
[2017-06-02 21:38] VITALS: BP 149/86
[2017-06-02] MEDS: QUETIAPINE 100MG TABLET PO SCH (22:14)
[2017-06-03] MEDS: SODIUM CHLORIDE 0.9% 1,000 ML IV SCH ×2 (00:40→07:20)
[2017-06-03] MEDS: metroNIDAZOLE 500 MG TABLET PO SCH ×2 (01:09→08:39)
[2017-06-03 01:29] VITALS: BP 117/76
[2017-06-03] MEDS: OXYcodone/APAP 5/325MG TABLET PO PRN ×2 (03:23→08:45)
[2017-06-03 08:28] VITALS: BP 149/89
[2017-06-03] MEDS: LAMOTRIGINE 200 MG TABLET PO SCH (08:39)
[2017-06-03] MEDS: FOLIC ACID 1 MG TABLET PO SCH (08:39)
[2017-06-03] MEDS: TAMSULOSIN 0.4 MG CAP.ER.24H PO SCH (08:39)
[2017-06-03] MEDS: SUCRALFATE 1 GM TABLET PO SCH ×2 (08:39→11:43)
[2017-06-03] MEDS: PANTOPROZOLE 40MG TABLET PO SCH (08:39)
[2017-06-03] MEDS: THIAMINE 100MG TABLET PO SCH (08:39)
[2017-06-03] MEDS: MULTIVITAMIN 1 TABLET PO SCH (08:40)
[2017-06-03] MEDS ORDERED: NICO1PAT16 TD (09:13)
[2017-06-03] MEDS ORDERED: METR500T PO (09:13)
[2017-06-03] MEDS: NICOTINE 21 MG/24 HR PATCH.TD24 TD SCH (10:30)
== END 2017-06-03 14:37 | disposition home or self-care (01) | DRG 391 ==
LOC: ED 06:07 → EDIP 07:58 → 4NOR 09:00 → DCLOUNGE 06-03 13:21
PROVIDERS: ADMIT Internal Medicine; ATTEND Internal Medicine
DX: K52.9 Noninfective gastroenteritis and colitis, unspecified (principal); E43 Unspecified severe protein-calorie malnutrition; I48.91 Unspecified atrial fibrillation; I10 Essential (primary) hypertension; D75.89 Other specified diseases of blood and blood-forming organs; E78.00 Pure hypercholesterolemia, unspecified; F10.20 Alcohol dependence, uncomplicated; F17.200 Nicotine dependence, unspecified, uncomplicated; E78.5 Hyperlipidemia, unspecified; F31.9 Bipolar disorder, unspecified; K21.9 Gastro-esophageal reflux disease without esophagitis; N40.0 Benign prostatic hyperplasia without lower urinary tract symptoms; Z59.0 Homelessness; Z91.14 Patient's other noncompliance with medication regimen
CPT/HCPCS: 36415; 80053; 81003; 83690; 83735; 84100; 85025; 87046; 87324; 87899; 89055; 93005; 96374; J2405; C9113; J2270; J7030

== ENCOUNTER 2017-07-09 00:02 | Emergency (ER) | payer MEDICARE, MEDICAID ==
[~2017-07-09] VITALS: Ht 177.8 cm; Wt 70.0 kg
[~2017-07-09 00:02] MED LIST changes: +NICO-486 TD; +NICO-487 TD; -NICO1PAT13 TD; -NICO1PAT16 TD
[2017-07-09] MEDS ORDERED: HYDR1TAB12 PO (00:23)
[2017-07-09] MEDS ORDERED: AMLO10TA2 PO (00:23)
[2017-07-09] MEDS ORDERED: ATOR-2 PO (00:23)
[2017-07-09] MEDS ORDERED: LIDOCAINE 1%, 20ML INFIL ONE (00:30)
[2017-07-09] MEDS ORDERED: DIPHTHERIA-TETANUS ADULT 0.5ML IM-VACC ONE (00:30)
[2017-07-09] MEDS ORDERED: DIPH,PERTUSS(ACELL),TET VAC/PF 0.5 ML IM-VACC ONE ×2 (00:30→00:37)
[2017-07-09] MEDS ORDERED: LIDOCAINE 1%, 20ML ONE (00:37)
[2017-07-09] MEDS ORDERED: HYDROcodone/APAP 5/325 TABLET ONE (02:39)
[2017-07-09 02:51] VITALS: BP 141/85
[2017-07-09] MEDS ORDERED: HYDROcodone/APAP 5/325 TABLET PO ONE (03:00)
== END 2017-07-09 04:09 | disposition home or self-care (01) ==
LOC: ED 00:46
DX: S06.0X0A Concussion without loss of consciousness, initial encounter (principal); S42.295A Other nondisplaced fracture of upper end of left humerus, initial encounter for closed fracture; I10 Essential (primary) hypertension; Z59.0 Homelessness; W06.XXXA Fall from bed, initial encounter; Y93.89 Activity, other specified; Y92.092 Bedroom in other non-institutional residence as the place of occurrence of the external cause; Y99.8 Other external cause status
CPT/HCPCS: 70450; 71010; 72125; 90471; 90715

== ENCOUNTER 2017-08-10 14:08 | Inpatient (IN) | payer MEDICARE, MEDICAID ==
[~2017-08-10] VITALS: Ht 182.9 cm; Wt 70.6 kg
[~2017-08-10 14:08] MED LIST changes: +ATOR-2 PO; +HYDR1TAB12 PO
[2017-08-10] MEDS ORDERED: IBUPROFEN 200 MG TABLET PO ONE (14:30)
[2017-08-10] MEDS ORDERED: ALBUTEROL/IPRATROPIUM 2.5MG/0.5MG, 3 ML ONE (14:39)
[2017-08-10] MEDS ORDERED: ALBUTEROL/IPRATROPIUM 2.5MG/0.5MG, 3 ML NPPB ONE (15:00)
[2017-08-10] MEDS ORDERED: IBUPROFEN 200 MG TABLET ONE (15:01)
[2017-08-10 15:13] LABS: HEMOGLOBIN 11.9 g/dL (13.7-18.0); WHITE BLOOD COUNT 8.2 x10^3/uL (3.4-10)
[2017-08-10 15:19] LABS: BLOOD UREA NITROGEN 10 mg/dL (7-18)
[2017-08-10 15:24] LABS: IS PT STATUS REG ER OR PRE ER? YES
[2017-08-10 15:43] LABS: ANISOCYTOSIS 2+
[2017-08-10 15:44] LABS: POLYCHROMASIA 1+
[2017-08-10] MEDS ORDERED: HYDROcodone/APAP 5/325 TABLET ONE (18:50)
[2017-08-10] MEDS ORDERED: HYDROcodone/APAP 5/325 TABLET PO ONE (19:00)
[2017-08-10] MEDS ORDERED: ACETAMINOPHEN 325 MG TABLET PO PRN (20:30)
[2017-08-10] MEDS ORDERED: ONDANSETRON 2MG/ML, 2ML IVPush PRN (20:30)
[2017-08-10] MEDS ORDERED: ENOXAPARIN 40 MG/0.4 ML SQ SCH (20:30)
[2017-08-10] MEDS ORDERED: LORazepam 2 MG/ML, 1ML IVPush PRN (20:30)
[2017-08-10] MEDS ORDERED: hydrALAzine 20 MG/ML, 1ML IVPush PRN (20:30)
[2017-08-10] MEDS ORDERED: DOCUSATE 100 MG CAPSULE PO PRN (20:30)
[2017-08-10] MEDS ORDERED: NICOTINE 21 MG/24 HR PATCH.TD24 TD SCH (20:30)
[2017-08-10] MEDS ORDERED: SUCRALFATE 1 GM TABLET PO SCH (21:00)
[2017-08-10] MEDS ORDERED: QUETIAPINE 200 MG TABLET PO SCH (21:00)
[2017-08-10] MEDS ORDERED: ATORVASTATIN 80 MG TABLET PO SCH (21:00)
[2017-08-10] MEDS ORDERED: FOLIC ACID 1 MG TABLET PO SCH (22:00)
[2017-08-10] MEDS ORDERED: ATORVASTATIN 10 MG TABLET PO SCH (22:44)
[2017-08-11] MEDS: LACTULOSE 10 GM/15 ML UDC PO SCH ×2 (00:15→07:45)
[2017-08-11] MEDS: PANTOPROZOLE 40MG TABLET PO SCH ×2 (00:16→07:45)
[2017-08-11] MEDS: OXYcodone/APAP 5/325MG TABLET PO PRN ×3 (00:16→13:45)
[2017-08-11] MEDS: SODIUM CHLORIDE 0.9% 1,000 ML IV SCH ×2 (00:28→07:44)
[2017-08-11 01:26] VITALS: BP 111/92
[2017-08-11] MEDS: THIAMINE 100 MG, MVI ADULT 10 ML in D5%-0.9% NACL 1,000 ML IV SCH ×2 (01:42→02:00)
[2017-08-11 02:39] VITALS: BP 104/67
[2017-08-11] MEDS: SUCRALFATE 1 GM/10 ML UDC PO SCH ×3 (07:40→16:15)
[2017-08-11 07:43] VITALS: BP 154/85
[2017-08-11] MEDS ORDERED: MULTIVITAMIN 1 TABLET PO SCH (09:00)
[2017-08-11] MEDS ORDERED: TAMSULOSIN 0.4 MG CAP.ER.24H PO SCH (09:00)
[2017-08-11] MEDS ORDERED: LAMOTRIGINE 200 MG TABLET PO SCH (09:00)
[2017-08-11 14:00] VITALS: BP 139/75
== END 2017-08-11 17:04 | disposition home or self-care (01) | DRG 562 ==
LOC: ED 15:56 → EDIP 19:43 → SUATTDRO 19:53 → 3NE 20:50
PROVIDERS: ADMIT Hospitalist; ATTEND Hospitalist
DX: S42.352A Displaced comminuted fracture of shaft of humerus, left arm, initial encounter for closed fracture (principal); J96.01 Acute respiratory failure with hypoxia; E44.0 Moderate protein-calorie malnutrition; W19.XXXA Unspecified fall, initial encounter; F10.229 Alcohol dependence with intoxication, unspecified; Y93.89 Activity, other specified; Y92.89 Other specified places as the place of occurrence of the external cause; Y99.8 Other external cause status; Z68.21 Body mass index [BMI] 21.0-21.9, adult; E78.5 Hyperlipidemia, unspecified; F31.9 Bipolar disorder, unspecified; I10 Essential (primary) hypertension; J44.9 Chronic obstructive pulmonary disease, unspecified; K22.70 Barrett's esophagus without dysplasia; N40.0 Benign prostatic hyperplasia without lower urinary tract symptoms; R29.6 Repeated falls; Z59.0 Homelessness; F17.200 Nicotine dependence, unspecified, uncomplicated; Z71.6 Tobacco abuse counseling
CPT/HCPCS: 36415; 71010; 80048; 82040; 83880; 84484; 85025; 93005; 94640; 99285; J1650; J3411; J7042; J7620; J7030; J7512

== ENCOUNTER 2017-08-16 15:18 | Emergency (ER) | payer MEDICARE, MEDICAID ==
[~2017-08-16] VITALS: Ht 180.3 cm; Wt 69.0 kg
[2017-08-16] MEDS ORDERED: ONDANSETRON 2MG/ML, 2ML IVPush ONE (16:30)
[2017-08-16] MEDS ORDERED: MORPHINE SULFATE 4 MG/ML, 1ML IVPush PRN (16:30)
[2017-08-16] MEDS ORDERED: SODIUM CHLORIDE FLUSH 10ML SYR IVF ONE (16:30)
[2017-08-16 16:46] LABS: HEMATOCRIT 40.4 % (39.2-51.8); HEMOGLOBIN 13.3 g/dL (13.7-18.0); WHITE BLOOD COUNT 21.1 x10^3/uL (3.4-10)
[2017-08-16 16:48] LABS: ASPARTATE AMINO TRANSFERASE 14 U/L (15-37); BLOOD UREA NITROGEN 15 mg/dL (7-18)
[2017-08-16] MEDS ORDERED: morphine SULFATE 10 MG/ML, 1ML ONE (16:52)
[2017-08-16] MEDS ORDERED: ONDANSETRON 2MG/ML, 2ML ONE (16:52)
[2017-08-16] MEDS ORDERED: SODIUM CHLORIDE 0.9% 1,000ML IVBOLUS ONE (17:00)
[2017-08-16 17:22] LABS: ANISOCYTOSIS 2+; POLYCHROMASIA 1+
[2017-08-16] MEDS ORDERED: OXYcodone/APAP 5/325MG TABLET PO ONE (20:00)
[2017-08-16] MEDS ORDERED: OXYcodone/APAP 5/325MG TABLET ONE (20:13)
[2017-08-16 20:45] VITALS: BP 131/70
== END 2017-08-16 20:48 | disposition home or self-care (01) ==
LOC: ED 16:17
DX: S42.212A Unspecified displaced fracture of surgical neck of left humerus, initial encounter for closed fracture (principal); D72.829 Elevated white blood cell count, unspecified; F10.20 Alcohol dependence, uncomplicated; Z72.89 Other problems related to lifestyle; J44.9 Chronic obstructive pulmonary disease, unspecified; E78.00 Pure hypercholesterolemia, unspecified; I11.9 Hypertensive heart disease without heart failure; E78.5 Hyperlipidemia, unspecified
CPT/HCPCS: 36415; 70450; 71010; 72125; 73030; 73060; 80053; 80307; 81003; 85025; 96361; 96374; 96375; 99285; J2405; J7030; G0479

== ENCOUNTER 2017-09-24 17:26 | Emergency (ER) | payer MEDICARE, MEDICAID ==
[~2017-09-24] VITALS: Ht 180.3 cm; Wt 69.0 kg
[~2017-09-24 17:26] MED LIST changes: -LAMO200T PO; +LAMO200T2 PO
[2017-09-24] MEDS ORDERED: OXYC-307 PO (17:43)
[2017-09-24] MEDS ORDERED: THIAMINE 100MG TABLET PO ONE (18:00)
[2017-09-24] MEDS ORDERED: HYDROcodone/APAP 5/325 TABLET PO ONE (18:00)
[2017-09-24] MEDS ORDERED: ONDANSETRON ODT 4 MG PO ONE (18:00)
[2017-09-24] MEDS ORDERED: THIAMINE 100MG TABLET ONE (18:14)
[2017-09-24] MEDS ORDERED: HYDROcodone/APAP 5/325 TABLET ONE (18:15)
[2017-09-24] MEDS ORDERED: ONDANSETRON ODT 4 MG ONE (18:15)
[2017-09-24 19:39] VITALS: BP 135/72
== END 2017-09-24 21:20 | disposition home or self-care (01) ==
LOC: ED 18:47
DX: F10.120 Alcohol abuse with intoxication, uncomplicated (principal); R11.0 Nausea; J44.9 Chronic obstructive pulmonary disease, unspecified; K21.9 Gastro-esophageal reflux disease without esophagitis; M19.90 Unspecified osteoarthritis, unspecified site; E78.00 Pure hypercholesterolemia, unspecified; E78.5 Hyperlipidemia, unspecified; I10 Essential (primary) hypertension; I48.91 Unspecified atrial fibrillation
CPT/HCPCS: 99284; Q0162

== ENCOUNTER 2017-10-22 13:12 | Emergency (ER) | payer MEDICARE, MEDICAID ==
[~2017-10-22] VITALS: Ht 172.7 cm; Wt 72.0 kg
[2017-10-22 13:40] VITALS: BP 119/71
[2017-10-22] MEDS ORDERED: ONDANSETRON ODT 4 MG PO ONE (14:00)
[2017-10-22] MEDS ORDERED: THIAMINE 100MG TABLET PO ONE (14:00)
[2017-10-22] MEDS ORDERED: THIAMINE 100MG TABLET ONE (14:17)
[2017-10-22] MEDS ORDERED: ONDANSETRON ODT 4 MG ONE (14:17)
[2017-10-22] MEDS ORDERED: PLEASE ENTER HEIGHT AND WEIGHT MC SCH (14:30)
== END 2017-10-22 16:15 | disposition home or self-care (01) ==
LOC: ED 14:38
DX: F10.129 Alcohol abuse with intoxication, unspecified (principal); F19.10 Other psychoactive substance abuse, uncomplicated; I10 Essential (primary) hypertension; G40.909 Epilepsy, unspecified, not intractable, without status epilepticus; F31.9 Bipolar disorder, unspecified; D69.6 Thrombocytopenia, unspecified; E78.00 Pure hypercholesterolemia, unspecified; G89.29 Other chronic pain; M54.9 Dorsalgia, unspecified; I48.91 Unspecified atrial fibrillation; J44.9 Chronic obstructive pulmonary disease, unspecified; K21.9 Gastro-esophageal reflux disease without esophagitis; M19.90 Unspecified osteoarthritis, unspecified site; Z59.0 Homelessness
CPT/HCPCS: 99283

== ENCOUNTER 2017-10-23 08:18 | Emergency (ER) | payer MEDICARE, MEDICAID ==
[~2017-10-23] VITALS: Ht 167.6 cm; Wt 72.0 kg
[2017-10-23 08:23] VITALS: BP 120/80
[2017-10-23] MEDS ORDERED: ACETAMINOPHEN 325 MG TABLET ONE (12:10)
[2017-10-23] MEDS ORDERED: ACETAMINOPHEN 325 MG TABLET PO ONE (12:30)
== END 2017-10-23 15:14 | disposition home or self-care (01) ==
LOC: ED 08:38
DX: S42.302A Unspecified fracture of shaft of humerus, left arm, initial encounter for closed fracture (principal); G40.909 Epilepsy, unspecified, not intractable, without status epilepticus; F31.9 Bipolar disorder, unspecified; E78.00 Pure hypercholesterolemia, unspecified; F10.120 Alcohol abuse with intoxication, uncomplicated; I10 Essential (primary) hypertension; I48.91 Unspecified atrial fibrillation; J15.9 Unspecified bacterial pneumonia; J44.0 Chronic obstructive pulmonary disease with (acute) lower respiratory infection; K21.9 Gastro-esophageal reflux disease without esophagitis; X58.XXXA Exposure to other specified factors, initial encounter; Y93.89 Activity, other specified; Y99.8 Other external cause status; Y92.89 Other specified places as the place of occurrence of the external cause
CPT/HCPCS: 71045; 99284

== ENCOUNTER 2019-02-18 05:16 | Inpatient (IN) | payer MEDICARE, MEDICAID ==
[~2019-02-18] VITALS: Ht 180.3 cm; Wt 76.4 kg
[~2019-02-18 05:16] MED LIST changes: +ALBU18HF INH; -AMLO10TA2 PO; +AMLO10TA8 PO; -CLON-364 PO; +CLON0.5T11 PO; -CYAN100T PO; +CYAN100T2 PO; -HYDR12.58 PO; -HYDR1TAB12 PO; +HYDR1TAB13 PO; +HYDR50TA13 PO; +HYDROCHLOROTH12.5 MG PO; +LAMO150T2 PO; +NALT380S PO; +OXYC-432 PO; -OXYC1TAB9 PO; -PROC10TA PO; +PROC10TA2 PO; -RANI-276 PO; +RANI-448 PO; -THIA100T6 PO; +THIA100T67 PO; +TRAZ-137 PO; -TRAZ100T15 PO; +ZOLP5TAB6 PO
[2019-02-18] MEDS ORDERED: LACTATED RINGERS 1,000 ML IV SCH (05:58)
[2019-02-18] MEDS ORDERED: CLINDAMYCIN 150 MG/ML, 6ML ONE (06:07)
[2019-02-18 06:32] VITALS: BP 125/75
[2019-02-18] MEDS ORDERED: BUPIVACAINE LIPOSOME/PF 10ML INFIL ONE (06:37)
[2019-02-18] MEDS ORDERED: FENTANYL PF 100 MCG/2ML ONE ×2 (06:41→09:03)
[2019-02-18] MEDS ORDERED: MIDAZOLAM 1 MG/ML, 2ML ONE (06:41)
[2019-02-18] MEDS ORDERED: PHENYLEPHRINE 10 MG/ML ONE (06:59)
[2019-02-18] MEDS ORDERED: NICOTINE 21 MG/24 HR PATCH.TD24 TD ONE (07:00)
[2019-02-18] MEDS ORDERED: hydrOXyzine 50MG TABLET PO PRN (07:00)
[2019-02-18] MEDS ORDERED: morphine SULFATE 10 MG/ML, 1ML IV PRN (07:00)
[2019-02-18] MEDS ORDERED: ALBUTEROL SULFATE 2.5 MG/3 ML NPPB PRN (07:00)
[2019-02-18] MEDS ORDERED: ACETAMINOPHEN 325 MG TABLET PO PRN ×2 (07:00→08:00)
[2019-02-18] MEDS ORDERED: DIPHENHYDRAMINE 25 MG CAPSULE PO PRN (07:00)
[2019-02-18] MEDS ORDERED: NEOSTIGMINE 1 MG/ML, 10ML ONE (07:55)
[2019-02-18] MEDS ORDERED: ONDANSETRON 2MG/ML, 2ML ONE (07:55)
[2019-02-18] MEDS ORDERED: CEFAZOLIN 1,000 MG ONE (07:55)
[2019-02-18] MEDS ORDERED: ROCURONIUM 10MG/ML,5ML ONE (07:55)
[2019-02-18] MEDS ORDERED: DEXAMETHASONE 4 MG/ML, 1ML ONE (07:55)
[2019-02-18] MEDS ORDERED: GLYCOPYRROLATE 0.2MG/1ML, 5ML ONE (07:55)
[2019-02-18] MEDS ORDERED: PROPOFOL 10 MG/ML, 20ML ONE (07:55)
[2019-02-18] MEDS ORDERED: LIDOCAINE-MPF 2% ,5ML ONE (07:55)
[2019-02-18] MEDS ORDERED: hydrALAzine 20 MG/ML, 1ML IV PRN (08:00)
[2019-02-18] MEDS ORDERED: OXYcodone 5 MG/5 ML ORAL.SOL UDC PO PRN (08:00)
[2019-02-18] MEDS ORDERED: MIDAZOLAM 1 MG/ML, 2ML IV PRN (08:00)
[2019-02-18] MEDS ORDERED: ONDANSETRON 2MG/ML, 2ML IV PRN (08:00)
[2019-02-18] MEDS ORDERED: METOPROLOL 1 MG/ML, 5ML IV PRN (08:00)
[2019-02-18] MEDS ORDERED: KETOROLAC 30 MG/1 ML IV PRN (08:00)
[2019-02-18] MEDS ORDERED: FENTANYL PF 100 MCG/2ML IV PRN (08:00)
[2019-02-18] MEDS ORDERED: HYDROmorphone 2 MG/ML, 1ML IVPush PRN (08:00)
[2019-02-18] MEDS ORDERED: PROMETHAZINE 25 MG/ML, 1ML IV PRN (08:00)
[2019-02-18] MEDS ORDERED: ALBUTEROL/IPRATROPIUM 2.5MG/0.5MG, 3 ML NPPB PRN (08:00)
[2019-02-18] MEDS ORDERED: MEPERIDINE/PF 25MG/0.5ML IVPush PRN (08:00)
[2019-02-18] MEDS ORDERED: EPHEDRINE 50 MG/ML, 1ML ONE (08:06)
[2019-02-18] MEDS: D5%-0.45% NACL 1,000 ML IV SCH ×2 (09:54→16:56)
[2019-02-18] MEDS ORDERED: OXYcodone 5 MG/5 ML ORAL.SOL UDC ONE (10:11)
[2019-02-18] MEDS: OXYcodone/APAP 10/325MG TABLET PO SCH ×5 (11:00→23:00)
[2019-02-18] MEDS: LAMOTRIGINE 100 MG TABLET PO SCH ×2 (12:24→21:09)
[2019-02-18] MEDS: TAMSULOSIN 0.4 MG CAP.ER.24H PO SCH (12:24)
[2019-02-18] MEDS: AMLODIPINE 10 MG TAB PO SCH (12:24)
[2019-02-18] MEDS: OMEPRAZOLE 20 MG CAPSULE.DR PO SCH ×2 (12:25→21:08)
[2019-02-18] MEDS: MULTIVITAMINS/MINERALS TABLET PO SCH (12:38)
[2019-02-18] MEDS: KETOROLAC 30 MG/1 ML IV SCH ×2 (12:38→20:25)
[2019-02-18] MEDS: DOCUSATE 100 MG CAPSULE PO SCH ×2 (12:38→21:08)
[2019-02-18 13:33] VITALS: BP 132/70
[2019-02-18] MEDS: CEFAZOLIN PMX 1GM/50ML 50 ML IVPB SCH ×2 (15:11→23:00)
[2019-02-18 18:36] VITALS: BP 112/70
[2019-02-18] MEDS: ALUMINUM/MAG/SIMETHICONE 30 ML UDC PO PRN (20:53)
[2019-02-18] MEDS: ZOLPIDEM 5MG TABLET PO SCH (21:00)
[2019-02-18] MEDS: ONDANSETRON 2MG/ML, 2ML IV PRN (21:53)
[2019-02-19 00:54] VITALS: BP 122/70
[2019-02-19] MEDS: ALUMINUM/MAG/SIMETHICONE 30 ML UDC PO PRN ×2 (01:03→18:44)
[2019-02-19] MEDS: D5%-0.45% NACL 1,000 ML IV SCH ×3 (03:06→22:56)
[2019-02-19] MEDS: OXYcodone/APAP 10/325MG TABLET PO SCH ×6 (03:06→23:10)
[2019-02-19 03:55] VITALS: BP 100/60
[2019-02-19] MEDS: ONDANSETRON 2MG/ML, 2ML IV PRN (04:37)
[2019-02-19] MEDS: KETOROLAC 30 MG/1 ML IV SCH (04:56)
[2019-02-19] MEDS ORDERED: KETOROLAC 30 MG/1 ML IV ONE (05:00)
[2019-02-19] MEDS: CEFAZOLIN PMX 1GM/50ML 50 ML IVPB SCH (06:39)
[2019-02-19 07:58] VITALS: BP 94/69
[2019-02-19] MEDS: OMEPRAZOLE 20 MG CAPSULE.DR PO SCH ×2 (08:00→20:32)
[2019-02-19] MEDS: TAMSULOSIN 0.4 MG CAP.ER.24H PO SCH (08:00)
[2019-02-19] MEDS: DOCUSATE 100 MG CAPSULE PO SCH ×2 (08:00→20:32)
[2019-02-19] MEDS: AMLODIPINE 10 MG TAB PO SCH (08:00)
[2019-02-19] MEDS: MULTIVITAMINS/MINERALS TABLET PO SCH (08:00)
[2019-02-19] MEDS: LAMOTRIGINE 100 MG TABLET PO SCH ×2 (08:05→20:32)
[2019-02-19 13:44] VITALS: BP 92/56
[2019-02-19 19:45] VITALS: BP 101/65
[2019-02-19] MEDS: ZOLPIDEM 5MG TABLET PO SCH (23:10)
[2019-02-20 02:36] VITALS: BP 93/59
[2019-02-20] MEDS: OXYcodone/APAP 10/325MG TABLET PO SCH ×3 (02:57→10:44)
[2019-02-20] MEDS: OMEPRAZOLE 20 MG CAPSULE.DR PO SCH (06:01)
[2019-02-20 07:53] VITALS: BP 109/68
[2019-02-20] MEDS: TAMSULOSIN 0.4 MG CAP.ER.24H PO SCH (08:06)
[2019-02-20] MEDS: DOCUSATE 100 MG CAPSULE PO SCH (08:06)
[2019-02-20] MEDS: LAMOTRIGINE 100 MG TABLET PO SCH (08:06)
[2019-02-20] MEDS: AMLODIPINE 10 MG TAB PO SCH (08:07)
[2019-02-20] MEDS: MULTIVITAMINS/MINERALS TABLET PO SCH (08:07)
[2019-02-20] MEDS: D5%-0.45% NACL 1,000 ML IV SCH (08:56)
[2019-03-03] MEDS ORDERED: NALTREXONE MICROSPHERES 380 MG PO SCH (07:00)
== END 2019-02-20 13:43 | disposition home or self-care (01) | DRG 483 ==
LOC: ORIP 05:16 → 4NOR 11:25 → DCLOUNGE 02-20 13:35
PROVIDERS: ADMIT Orthopaedic Surgery; ATTEND Orthopaedic Surgery
PROC: 0LS40ZZ Reposition Left Upper Arm Tendon, Open Approach (ICD-10-PCS; 2019-02-18)
PROC: 0PSG04Z Reposition Left Humeral Shaft with Internal Fixation Device, Open Approach (ICD-10-PCS; 2019-02-18)
PROC: 3E0T3BZ Introduction of Anesthetic Agent into Peripheral Nerves and Plexi, Percutaneous Approach (ICD-10-PCS; 2019-02-18)
PROC: 3E0T33Z Introduction of Anti-inflammatory into Peripheral Nerves and Plexi, Percutaneous Approach (ICD-10-PCS; 2019-02-18)
PROC: 0RRK00Z Replacement of Left Shoulder Joint with Reverse Ball and Socket Synthetic Substitute, Open Approach (ICD-10-PCS; principal; 2019-02-18 07:00)
DX: S42.202P Unspecified fracture of upper end of left humerus, subsequent encounter for fracture with malunion (principal); M75.22 Bicipital tendinitis, left shoulder; M65.9 Synovitis and tenosynovitis, unspecified; X58.XXXD Exposure to other specified factors, subsequent encounter; R33.9 Retention of urine, unspecified; J44.9 Chronic obstructive pulmonary disease, unspecified; I10 Essential (primary) hypertension; N40.0 Benign prostatic hyperplasia without lower urinary tract symptoms; F31.9 Bipolar disorder, unspecified; G40.909 Epilepsy, unspecified, not intractable, without status epilepticus; M19.90 Unspecified osteoarthritis, unspecified site; K21.9 Gastro-esophageal reflux disease without esophagitis; F17.200 Nicotine dependence, unspecified, uncomplicated; Z79.899 Other long term (current) drug therapy
CPT/HCPCS: 93005; C1713; C1776; G0378; J0690; J1100; J1885; J2250; J2405; J2704; J2710; J3010; C1769; J2370; J7120

== ENCOUNTER 2019-12-29 05:06 | Emergency (ER) | payer MEDICARE ==
[~2019-12-29] VITALS: Ht 180.3 cm; Wt 70.0 kg
[~2019-12-29 05:06] MED LIST changes: +CEFD300C37 PO; +CLON-364 PO; -CLON0.5T11 PO; +CYAN-27 PO; -CYAN10005 PO; +DOXY100T PO; -HYDR50TA13 PO; +HYDR50TA99 PO; -LAMO150T2 PO; +LAMO150T4 PO; -LAMO200T2 PO; +LAMO200T6 PO; +NALT380S IM; -NALT380S PO; +OMEP40CA42 PO; -OMEP40CA6 PO; +POTA20PA25 PO; -RANI-448 PO; +RANI-460 PO; -SUCR1ORA11 PO; +SUCR1ORA14 PO; +TIZA4TAB2 PO; -TRAZ-137 PO; +TRAZ-175 PO
[2019-12-29] MEDS ORDERED: ONDANSETRON 2MG/ML, 2ML ONE (05:39)
[2019-12-29] MEDS ORDERED: PANTOPRAZOLE 40 MG IV ONE (05:41)
--- NOTE | 2019-12-29 05:54 | NUR ---
MEDICATED PER MAR. SAFETY PRECAUTIONS IN PLACE, CALL LIGHT WITHIN REACH.
[2019-12-29] MEDS ORDERED: PANTOPRAZOLE 40 MG IV IV ONE (06:00)
[2019-12-29] MEDS ORDERED: ONDANSETRON 2MG/ML, 2ML IVPush ONE (06:00)
[2019-12-29 06:22] LABS: ALANINE AMINOTRANSFERASE 150 U/L (12-78); ALBUMIN 3.7 g/dL (3.4-5.0); ANION GAP 10 mmol/L (5-15); CALCIUM 8.4 mg/dL (8.5-10.1); CHLORIDE 100 mmol/L (98-107)
[2019-12-29 06:26] LABS: ALKALINE PHOSPHATASE 46 U/L (45-117); BILIRUBIN,TOTAL 1.1 mg/dL (0.2-1.0); TOTAL PROTEIN 6.9 g/dL (6.4-8.2); TROPONIN I < 0.015 ng/mL (0.000-0.045)
[2019-12-29 06:34] LABS: MEAN CORPUSCULAR HEMOGLOBIN 30.3 pg (27.5-34.5); MEAN CORPUSCULAR HGB CONC 33.8 g/dL (33.2-36.2); MEAN CORPUSCULAR VOLUME 89.7 fL (81-97); MEAN PLATELET VOLUME 8.6 fL (7.4-10.4); PLATELET COUNT 196 x10^3/uL (130-400); RED BLOOD COUNT 4.55 x10^6/uL (4.38-5.82); RED CELL DISTRIBUTION WIDTH 19.8 % (9.4-14.8)
[2019-12-29 06:45] LABS: MD YES
[2019-12-29] MEDS ORDERED: MAALOX/HYOSCYAMINE/LIDOCAINE 45 ML BTL ONE (06:45)
[2019-12-29 06:47] LABS: ANISOCYTOSIS 1+; BAND#(MANUAL) 0.06 x10^3/uL; BANDS%(MANUAL) 1 % (0-7); BASOS#(MANUAL) 0.06 x10^3/uL (0-0.1); BASOS% (MANUAL) 1 % (0-1); EOS#(MANUAL) 0.12 x10^3/uL (0.0-0.4); EOS% (MANUAL) 2 % (1-7); LYMPHS% (MANUAL) 20 % (22-44); MONOS#(MANUAL) 0.12 x10^3/uL (0.3-2.7); MONOS% (MANUAL) 2 % (2-9); SEG#(MANUAL) 4.44 x10^3/uL (1.8-6.8); SEGS% (MANUAL) 74 % (42-75)
[2019-12-29 06:48] LABS: <PLATELET ESTIMATE> ADEQUATE; <PLT MORPHOLOGY> NORMAL PLT MORPH; TARGET CELLS 1+
--- NOTE | 2019-12-29 06:51 | NUR ---
RESTING ON GURNEY, NO ACUTE DISTRESS NOTED, RESPIRATIONS EVEN AND UNLABORED.
--- NOTE | 2019-12-29 06:59 | NUR ---
REPORT GIVEN TO FRANCISCO DENNIS.
[2019-12-29] MEDS ORDERED: MAALOX/HYOSCYAMINE/LIDOCAINE 45 ML BTL PO ONE (07:00)
--- NOTE | 2019-12-29 07:05 | NUR ---
i am assuming care of this pt from tiana (sharri) at this time. sbar report was exchanged at the bedside.
--- NOTE | 2019-12-29 08:04 | NUR ---
PT URINATED IN THE TRASH CAN. HE WAS STEADY ON HIS FEET AND REQUESTING FOOD UPON MY ENTRY. I ASSISTED HIM BACK TO BED. FOOD/DRINK PROVIDED TO CHECK PO CAPABILITIES.
--- NOTE | 2019-12-29 09:20 | NUR ---
PT SLEEPING SONOROUSLY ON AN [place]. HIS VS ARE STABLE, AND WDL. I WILL ALLOW MORE TIME FOR METABOLIZING AND REST PRIOR TO ROAD TEST AMBULATION FOR D/C.
--- NOTE | 2019-12-29 12:06 | NUR ---
pt enjoying a sandwich on an e.r. gurney. he is agreeable to ambulation upon completion of his meal. i radha assess the appropriateness of d/c at that time.
--- NOTE | 2019-12-29 13:02 | NUR ---
DIPAK (RN) IS ASSUMING CARE OF THIS PT AT THIS TIME. SBAR REPORT WAS EXCHANGED AT THE BEDSIDE.
[2019-12-29 13:40] VITALS: BP 129/76
--- NOTE | 2019-12-29 13:46 | NUR ---
TASK RN: PATIENT TOLERATING PO FLUIDS/SOLIDS UP WALKING WITH NO DIFFICULTY REPORTS, "ILL BE FINE." MANAGER [employer] REVIEWED HOME CARE/MEDICATION, SXS WARRANTING RETURN TO CARE
== END 2019-12-29 14:11 | disposition home or self-care (01) ==
LOC: ED 05:20
DX: K29.20 Alcoholic gastritis without bleeding (principal); F10.120 Alcohol abuse with intoxication, uncomplicated; R10.13 Epigastric pain; R07.89 Other chest pain; I45.10 Unspecified right bundle-branch block; R11.2 Nausea with vomiting, unspecified; F17.200 Nicotine dependence, unspecified, uncomplicated; Y90.0 Blood alcohol level of less than 20 mg/100 ml
CPT/HCPCS: 36415; 71045; 80053; 80307; 83690; 84484; 85025; 93005; 96374; 96375; 99284; C9113; J2405

== ENCOUNTER 2020-05-04 21:41 | Inpatient (IN) | payer MEDICARE ==
[~2020-05-04] VITALS: Ht 180.3 cm; Wt 71.6 kg
[~2020-05-04 21:41] MED LIST changes: +LAMO200T49 PO; +MULT-449 PO; -MULT1TAB60 PO; +ONDA4TAB13 SL
--- NOTE | 2020-05-04 21:58 | NUR ---
PT BIB EMS FROM HOME WITH COFFEE GROUND EMESIS X7HRS. PT REPORTS HX OF SAME WITH CHRONIC BINGE DRINKING. REPORTS N/V WITH EPIGASTRIC PAIN, AND FATIGUE, DENIES DIARRHEA OR ANY OTHER C/O AT THIS TIME. GIVEN 4MG PO ZOFRAN BY EMS WITHOUT RELIEF WELL 200ML NS. PT VOMITING CONTINUOUSLY ON ARRIVAL TO ED. BP 77/50 ON ARRIVAL. SECOND IV PLACED, MONITORING APPLIED. CALL LIGHT WITHIN REACH. ALL SAFETY MEASURES IN PLACE.
[2020-05-04] MEDS ORDERED: PANTOPRAZOLE 80 MG in SODIUM CHLORIDE 0.9% 50 ML IVPB ONE (22:03)
[2020-05-04] MEDS ORDERED: ONDANSETRON 2MG/ML, 2ML ONE (22:05)
[2020-05-04] MEDS ORDERED: PANTOPRAZOLE 40 MG IV ONE (22:05)
--- NOTE | 2020-05-04 22:05 | NUR ---
IVF INITIATED WITH PRESSURE BAG PER MD. PT CONTINUES TO VOMIT COFFEE GROUND EMESIS. PROVIDED WARM BLANKETS. ERP IN ROOM TO EVAL PT. PT UPDATED ON POC.
[2020-05-04] MEDS ORDERED: PROPOFOL 10 MG/ML, 20ML ONE (22:14)
[2020-05-04 22:17] LABS: MEAN CORPUSCULAR HEMOGLOBIN 30.1 pg (27.5-34.5); MEAN CORPUSCULAR VOLUME 91.2 fL (81-97); MEAN PLATELET VOLUME 8.1 fL (7.4-10.4); PLATELET COUNT 478 x10^3/uL (130-400); RED BLOOD COUNT 4.71 x10^6/uL (4.38-5.82); RED CELL DISTRIBUTION WIDTH 20.5 % (9.4-14.8)
[2020-05-04 22:27] LABS: ALANINE AMINOTRANSFERASE 30 U/L (12-78); ALBUMIN 3.6 g/dL (3.4-5.0); ANION GAP 19 mmol/L (5-15); CHLORIDE 97 mmol/L (98-107)
[2020-05-04 22:27] LABS: INTERNATIONAL NORMALIZED RATIO 0.97 (0.93-1.1)
[2020-05-04 22:29] LABS: ALKALINE PHOSPHATASE 41 U/L (45-117); BILIRUBIN,TOTAL 0.5 mg/dL (0.2-1.0); CALCIUM 10.1 mg/dL (8.5-10.1); TOTAL PROTEIN 7.8 g/dL (6.4-8.2)
[2020-05-04] MEDS ORDERED: ONDANSETRON 2MG/ML, 2ML IVPush ONE (22:30)
[2020-05-04] MEDS ORDERED: SODIUM CHLORIDE 0.9% 1,000ML IVBOLUS ONE (22:30)
[2020-05-04] MEDS ORDERED: OCTREOTIDE 50 MCG/ML, 1ML (0.05MG/ML) IVPush ONE (22:30)
[2020-05-04] MEDS ORDERED: PANTOPRAZOLE 80 MG in SODIUM CHLORIDE 0.9% 100 ML IV SCH (22:30)
[2020-05-04 22:41] LABS: MD YES
[2020-05-04] MEDS ORDERED: KETAMINE 10 MG/ML, 20ML ONE ×2 (22:41→22:56)
[2020-05-04 22:44] LABS: <PLATELET ESTIMATE> INCREASED; <PLT MORPHOLOGY> NORMAL PLT MORPH; ANISOCYTOSIS 1+; BAND#(MANUAL) 0.18 x10^3/uL; BANDS%(MANUAL) 1 % (0-7); BASOS#(MANUAL) 0.18 x10^3/uL (0-0.1); BASOS% (MANUAL) 1 % (0-1); LYMPH#(MANUAL) 1.26 x10^3/uL (1-3.4); LYMPHS% (MANUAL) 7 % (22-44); SEG#(MANUAL) 16.38 x10^3/uL (1.8-6.8); SEGS% (MANUAL) 91 % (42-75)
[2020-05-05] MEDS ORDERED: ONDANSETRON 2MG/ML, 2ML IVPush PRN
--- NOTE | 2020-05-05 00:06 | NUR ---
ENDOSCOPY PERFORMED WITH SEDATION, AT FOR ENTIRE PROCEDURE, PT TOLERATED SEDATION WELL. APPX 1600ML COFFEE GROUND EMESIS OUT VIA SUCTION DURING ENDOSCOPY. PT AOX4 AT THIS TIME, REPORTS SORE THROAT AND REDUCED EMESIS VOLUME AND FREQUENCY. SEE PAPER CHARTING FOR MEDICATION ADMINISTRATION AND VS. PT CALM, MOVES ALL, VSS. ALL MONITORING IN PLACE, CALL LIGHT WITHIN REACH, ALL SAFETY MEASURES IN PLACE.
--- NOTE | 2020-05-05 00:56 | NUR ---
PT RESTING ON [facility] WITH HOSPTIALIST AT . MONITORING IN PLACE. CALL LIGHT WITHIN REACH.
[2020-05-05] MEDS ORDERED: POTASSIUM CHLORIDE 20 MEQ, MAGNESIUM SULFATE 2 GM, THIAMINE 200 MG, MVI ADULT 10 ML, FO... IV SCH (01:04)
--- NOTE | 2020-05-05 01:11 | NUR ---
TASK RN: REPORT TO SONNY AVENDAÑO IN CCU. PT PREPARED FOR TRANSPORT
[2020-05-05] MEDS ORDERED: ACETAMINOPHEN 650 MG SUPP PR PRN (01:30)
[2020-05-05] MEDS: LORazepam 2 MG/ML, 1ML IVPush PRN ×3 (01:38→16:48)
[2020-05-05 04:00] VITALS: BP 126/77
[2020-05-05 04:35] LABS: MEAN CORPUSCULAR HEMOGLOBIN 29.9 pg (27.5-34.5); MEAN CORPUSCULAR HGB CONC 33.1 g/dL (33.2-36.2); MEAN CORPUSCULAR VOLUME 90.2 fL (81-97); MEAN PLATELET VOLUME 8.3 fL (7.4-10.4); PLATELET COUNT 362 x10^3/uL (130-400); RED BLOOD COUNT 3.67 x10^6/uL (4.38-5.82)
[2020-05-05] MEDS: ONDANSETRON 2MG/ML, 2ML IV PRN ×2 (04:44→10:56)
[2020-05-05 04:46] LABS: ALBUMIN 3.1 g/dL (3.4-5.0); ANION GAP 8 mmol/L (5-15); CALCIUM 8.1 mg/dL (8.5-10.1); CHLORIDE 107 mmol/L (98-107)
[2020-05-05 04:50] LABS: ALANINE AMINOTRANSFERASE 24 U/L (12-78); ALKALINE PHOSPHATASE 32 U/L (45-117); BILIRUBIN,TOTAL 0.3 mg/dL (0.2-1.0); CREATININE 0.92 mg/dL (0.7-1.3)
[2020-05-05 05:43] LABS: BASOPHILS # (AUTO) 0.05 x10^3/uL (0-0.1); BASOPHILS % (AUTO) 0 % (0-1); EOSINOPHILS # (AUTO) 0.05 x10^3/uL (0-0.4); EOSINOPHILS % (AUTO) 0 % (1-7); LYMPHOCYTES # (AUTO) 1.63 x10^3/uL (1-3.4); LYMPHOCYTES % (AUTO) 10 % (22-44); MD SCAN; MONOCYTES % (AUTO) 10 % (2-9); NEUTROPHILS % (AUTO) 80 % (42-75)
[2020-05-05] MEDS: PANTOPRAZOLE 80 MG in SODIUM CHLORIDE 0.9% 100 ML IV SCH ×2 (07:08→16:48)
[2020-05-05] MEDS: NICOTINE 21 MG/24 HR PATCH.TD24 TD SCH (10:56)
[2020-05-05] MEDS ORDERED: LORazepam 2 MG/ML, 1ML IV PRN ×2 (17:00)
[2020-05-05 18:20] VITALS: BP 157/85
[2020-05-05] MEDS: POTASSIUM CHLORIDE 20 MEQ in SODIUM CHLORIDE 0.9% 1,000 ML IV SCH (18:23)
[2020-05-05 22:16] VITALS: BP 123/82
[2020-05-05] MEDS: LORazepam 2 MG/ML, 1ML IV PRN (22:16)
[2020-05-05 22:30] LABS: MICROSCOPIC NOT IND
[2020-05-06] MEDS: POTASSIUM CHLORIDE 20 MEQ, MAGNESIUM SULFATE 2 GM, THIAMINE 200 MG, MVI ADULT 10 ML, FO... IV SCH ×2 (01:09→22:26)
[2020-05-06] MEDS: ONDANSETRON 2MG/ML, 2ML IV PRN ×2 (01:13→05:28)
[2020-05-06 01:30] VITALS: BP 119/70
[2020-05-06 02:15] LABS: BASOPHILS # (AUTO) 0.01 x10^3/uL (0-0.1); BASOPHILS % (AUTO) 0 % (0-1); EOSINOPHILS # (AUTO) 0.18 x10^3/uL (0-0.4); EOSINOPHILS % (AUTO) 1 % (1-7); LYMPHOCYTES % (AUTO) 11 % (22-44); MD NO; MEAN CORPUSCULAR HEMOGLOBIN 30.3 pg (27.5-34.5); MEAN CORPUSCULAR HGB CONC 33.2 g/dL (33.2-36.2); MEAN CORPUSCULAR VOLUME 91.2 fL (81-97); MEAN PLATELET VOLUME 7.6 fL (7.4-10.4); MONOCYTES # (AUTO) 0.74 x10^3/uL (0.2-0.8); MONOCYTES % (AUTO) 4 % (2-9); NEUTROPHILS # (AUTO) 14.08 x10^3/uL (1.8-6.8); NEUTROPHILS % (AUTO) 84 % (42-75); PLATELET COUNT 312 x10^3/uL (130-400); RED BLOOD COUNT 3.19 x10^6/uL (4.38-5.82); RED CELL DISTRIBUTION WIDTH 19.6 % (9.4-14.8)
[2020-05-06 02:20] LABS: ALANINE AMINOTRANSFERASE 18 U/L (12-78); ALBUMIN 2.9 g/dL (3.4-5.0); ANION GAP 5 mmol/L (5-15); CALCIUM 8.1 mg/dL (8.5-10.1); CHLORIDE 110 mmol/L (98-107); CREATININE 0.59 mg/dL (0.7-1.3)
[2020-05-06 02:23] LABS: ALKALINE PHOSPHATASE 32 U/L (45-117); BILIRUBIN,TOTAL 0.5 mg/dL (0.2-1.0); TOTAL PROTEIN 5.9 g/dL (6.4-8.2)
[2020-05-06] MEDS: PANTOPRAZOLE 80 MG in SODIUM CHLORIDE 0.9% 100 ML IV SCH ×3 (03:08→22:26)
[2020-05-06] MEDS: LORazepam 2 MG/ML, 1ML IV PRN ×5 (05:27→22:36)
[2020-05-06 07:16] VITALS: BP 148/79
[2020-05-06] MEDS: NICOTINE 21 MG/24 HR PATCH.TD24 TD SCH (07:59)
[2020-05-06] MEDS: POTASSIUM CHLORIDE 20 MEQ in SODIUM CHLORIDE 0.9% 1,000 ML IV SCH ×2 (10:34→22:28)
[2020-05-06 13:45] VITALS: BP 122/78
[2020-05-06 13:58] VITALS: BP 131/77
[2020-05-06 19:43] VITALS: BP 130/72
[2020-05-07 00:19] VITALS: BP 136/76
[2020-05-07] MEDS: LORazepam 2 MG/ML, 1ML IV PRN ×2 (02:37→20:22)
[2020-05-07 07:26] VITALS: BP 146/83
[2020-05-07] MEDS: NICOTINE 21 MG/24 HR PATCH.TD24 TD SCH (10:36)
[2020-05-07] MEDS: PANTOPRAZOLE 20MG TABLET PO SCH ×2 (10:36→22:14)
[2020-05-07 13:19] VITALS: BP 123/75
[2020-05-07] MEDS: POTASSIUM CHLORIDE 20 MEQ in SODIUM CHLORIDE 0.9% 1,000 ML IV SCH (15:19)
[2020-05-07 20:02] VITALS: BP 150/83
[2020-05-07] MEDS: ONDANSETRON 2MG/ML, 2ML IV PRN (20:21)
[2020-05-08 00:43] VITALS: BP 144/79
[2020-05-08] MEDS: LORazepam 2 MG/ML, 1ML IV PRN ×4 (02:23→18:11)
[2020-05-08] MEDS: ONDANSETRON 2MG/ML, 2ML IV PRN ×2 (02:23→09:04)
[2020-05-08] MEDS: POTASSIUM CHLORIDE 20 MEQ in SODIUM CHLORIDE 0.9% 1,000 ML IV SCH (04:10)
[2020-05-08 05:26] LABS: BASOPHILS # (AUTO) 0.02 x10^3/uL (0-0.1); BASOPHILS % (AUTO) 0 % (0-1); EOSINOPHILS # (AUTO) 0.52 x10^3/uL (0-0.4); EOSINOPHILS % (AUTO) 8 % (1-7); LYMPHOCYTES # (AUTO) 1.36 x10^3/uL (1-3.4); LYMPHOCYTES % (AUTO) 21 % (22-44); MD NO; MEAN CORPUSCULAR HEMOGLOBIN 30.6 pg (27.5-34.5); MEAN CORPUSCULAR HGB CONC 33.4 g/dL (33.2-36.2); MEAN CORPUSCULAR VOLUME 91.6 fL (81-97); MEAN PLATELET VOLUME 8.2 fL (7.4-10.4); MONOCYTES # (AUTO) 0.54 x10^3/uL (0.2-0.8); MONOCYTES % (AUTO) 8 % (2-9); NEUTROPHILS # (AUTO) 4.13 x10^3/uL (1.8-6.8); NEUTROPHILS % (AUTO) 63 % (42-75); PLATELET COUNT 282 x10^3/uL (130-400); RED BLOOD COUNT 3.02 x10^6/uL (4.38-5.82); RED CELL DISTRIBUTION WIDTH 19.1 % (9.4-14.8)
[2020-05-08 07:59] VITALS: BP 168/63
[2020-05-08] MEDS: PANTOPRAZOLE 20MG TABLET PO SCH ×2 (09:03→22:03)
[2020-05-08] MEDS: NICOTINE 21 MG/24 HR PATCH.TD24 TD SCH (09:04)
[2020-05-08] MEDS: METOCLOPRAMIDE 10MG TABLET PO SCH ×3 (11:47→20:51)
[2020-05-08 13:58] VITALS: BP 151/77
[2020-05-08] MEDS: morphine SULFATE 10 MG/ML, 1ML IVPush PRN ×4 (14:47→23:53)
[2020-05-08 20:38] VITALS: BP 156/93
[2020-05-09 00:59] VITALS: BP 127/77
[2020-05-09] MEDS: morphine SULFATE 10 MG/ML, 1ML IVPush PRN (03:27)
[2020-05-09 06:02] LABS: CHLORIDE 103 mmol/L (98-107)
[2020-05-09 06:08] LABS: ANION GAP 9 mmol/L (5-15); CALCIUM 8.5 mg/dL (8.5-10.1); CREATININE 0.53 mg/dL (0.7-1.3)
[2020-05-09] MEDS ORDERED: POTASSIUM CHLORIDE 20 MEQ TAB.ER.PRT PO ONE (08:00)
[2020-05-09] MEDS: PANTOPRAZOLE 20MG TABLET PO SCH (08:26)
[2020-05-09] MEDS: NICOTINE 21 MG/24 HR PATCH.TD24 TD SCH (08:27)
[2020-05-09] MEDS: METOCLOPRAMIDE 10MG TABLET PO SCH ×3 (08:27→16:00)
[2020-05-09 08:31] VITALS: BP 138/90
[2020-05-09] MEDS ORDERED: PANT40TA3 PO (10:01)
[2020-05-09 13:59] VITALS: BP 138/87
== END 2020-05-09 17:16 | disposition home health service (06) | DRG 380 ==
LOC: ED 22:27 → EDIP 23:36 → CCU 05-05 01:21 → 3N 05-05 18:18
PROVIDERS: ADMIT Family Medicine; ATTEND Hospitalist
PROC: 0DB68ZX Excision of Stomach, Via Natural or Artificial Opening Endoscopic, Diagnostic (ICD-10-PCS; principal; 2020-05-04)
PROC: 0W3P8ZZ Control Bleeding in Gastrointestinal Tract, Via Natural or Artificial Opening Endoscopic (ICD-10-PCS; 2020-05-04)
PROC: 3E0G8GC Introduction of Other Therapeutic Substance into Upper GI, Via Natural or Artificial Opening Endoscopic (ICD-10-PCS; 2020-05-04)
DX: K22.11 Ulcer of esophagus with bleeding (principal); N17.0 Acute kidney failure with tubular necrosis; D62 Acute posthemorrhagic anemia; E46 Unspecified protein-calorie malnutrition; K55.1 Chronic vascular disorders of intestine; D63.8 Anemia in other chronic diseases classified elsewhere; E11.65 Type 2 diabetes mellitus with hyperglycemia; E78.00 Pure hypercholesterolemia, unspecified; E78.5 Hyperlipidemia, unspecified; F17.210 Nicotine dependence, cigarettes, uncomplicated; F31.9 Bipolar disorder, unspecified; I10 Essential (primary) hypertension; J44.9 Chronic obstructive pulmonary disease, unspecified; K21.0 Gastro-esophageal reflux disease with esophagitis; Z87.442 Personal history of urinary calculi; Z87.19 Personal history of other diseases of the digestive system; Z87.11 Personal history of peptic ulcer disease; N40.0 Benign prostatic hyperplasia without lower urinary tract symptoms; N20.0 Calculus of kidney; K80.20 Calculus of gallbladder without cholecystitis without obstruction; K52.9 Noninfective gastroenteritis and colitis, unspecified; F10.220 Alcohol dependence with intoxication, uncomplicated; D47.3 Essential (hemorrhagic) thrombocythemia; K29.21 Alcoholic gastritis with bleeding; K22.2 Esophageal obstruction; K26.9 Duodenal ulcer, unspecified as acute or chronic, without hemorrhage or perforation; I95.9 Hypotension, unspecified; Z68.22 Body mass index [BMI] 22.0-22.9, adult; Y90.9 Presence of alcohol in blood, level not specified; Z79.4 Long term (current) use of insulin
CPT/HCPCS: 36415; 71045; 80048; 80053; 80307; 81003; 83690; 83735; 84100; 85014; 85018; 85025; 85610; 86850; 86900; 87081; 93005; 96365; 96375; 99291; G0378; J2405; J3411; J3475; J3480; J7042; C9113; J2060; J2270; J7030

== ENCOUNTER 2020-06-08 21:20 | Inpatient (IN) | payer MEDICARE ==
[~2020-06-08] VITALS: Ht 182.9 cm; Wt 73.0 kg
[~2020-06-08 21:20] MED LIST changes: -CYAN100T2 PO; +CYAN100T22 PO; -OXYC-432 PO; +OXYC1TAB18 PO; -PANT40TA5 PO; +PANT40TA6 PO
[2020-06-08] MEDS ORDERED: SODIUM CHLORIDE 0.9% 1,000ML IVBOLUS ONE (21:30)
[2020-06-08] MEDS ORDERED: SODIUM CHLORIDE FLUSH 10ML SYR IVF ONE (21:30)
[2020-06-08 21:52] LABS: BASOPHILS # (AUTO) 0.03 x10^3/uL (0-0.1); BASOPHILS % (AUTO) 1 % (0-1); EOSINOPHILS # (AUTO) 0.04 x10^3/uL (0-0.4); EOSINOPHILS % (AUTO) 1 % (1-7); LYMPHOCYTES # (AUTO) 0.98 x10^3/uL (1-3.4); LYMPHOCYTES % (AUTO) 18 % (22-44); MD NO; MEAN CORPUSCULAR HEMOGLOBIN 27.6 pg (27.5-34.5); MEAN CORPUSCULAR HGB CONC 31.2 g/dL (33.2-36.2); MEAN PLATELET VOLUME 9.7 fL (7.4-10.4); MONOCYTES # (AUTO) 0.57 x10^3/uL (0.2-0.8); MONOCYTES % (AUTO) 10 % (2-9); NEUTROPHILS # (AUTO) 3.89 x10^3/uL (1.8-6.8); NEUTROPHILS % (AUTO) 71 % (42-75); PLATELET COUNT 196 x10^3/uL (130-400); RED BLOOD COUNT 3.75 x10^6/uL (4.38-5.82); RED CELL DISTRIBUTION WIDTH 21.4 % (9.4-14.8)
[2020-06-08 21:59] LABS: ALANINE AMINOTRANSFERASE 73 U/L (12-78); ALBUMIN 3.3 g/dL (3.4-5.0); ANION GAP 12 mmol/L (5-15); CALCIUM 8.4 mg/dL (8.5-10.1); CHLORIDE 104 mmol/L (98-107); CREATININE 1.21 mg/dL (0.7-1.3)
[2020-06-08 22:02] LABS: ALKALINE PHOSPHATASE 49 U/L (45-117); BILIRUBIN,TOTAL 0.8 mg/dL (0.2-1.0); TOTAL PROTEIN 6.3 g/dL (6.4-8.2)
--- NOTE | 2020-06-08 23:48 | NUR ---
PT UPDATED ON PLAN OF CARE, ATTEMPTING TO URINATE NOW. VITAL SIGNS STABLE. NO NOTED ACUTE DISTRESS. TOLERATING INTERVENTIONS WELL. WILL CONTINUE TO MONITOR
[2020-06-09] MEDS ORDERED: SODIUM CHLORIDE 0.9% 1,000 ML IV ONE
[2020-06-09 00:18] LABS: MICROSCOPIC NOT IND
--- NOTE | 2020-06-09 01:00 | NUR ---
PATIENT MOVED TO ROOM 17, PATIENT TOLERATED WELL. NO ADDITIONAL NEEDS NOTED AT THIS TIME. WILL CONTINUE TO MONITOR.
[2020-06-09 01:59] LABS: TROPONIN I < 0.015 ng/mL (0.000-0.045)
[2020-06-09] MEDS ORDERED: OXYcodone IR 5MG TABLET PO PRN (02:00)
[2020-06-09] MEDS ORDERED: POTASSIUM CHLORIDE 40 MEQ in SODIUM CHLORIDE 0.9% 500 ML IV ONE (02:00)
[2020-06-09] MEDS ORDERED: hydrALAzine 20 MG/ML, 1ML IVPush PRN (02:00)
[2020-06-09] MEDS ORDERED: hydrOXyzine 50MG TABLET PO PRN (02:00)
[2020-06-09] MEDS ORDERED: ONDANSETRON ODT 4 MG PO PRN (02:00)
[2020-06-09] MEDS ORDERED: morphine SULFATE 10 MG/ML, 1ML IVPush PRN (02:00)
[2020-06-09] MEDS ORDERED: ALBUTEROL HFA 90 MCG/SPRAY INH PRN (02:00)
[2020-06-09] MEDS ORDERED: BISACODYL 10 MG SUPP PR PRN (02:00)
[2020-06-09] MEDS ORDERED: ACETAMINOPHEN 325 MG TABLET PO PRN (02:00)
[2020-06-09] MEDS ORDERED: ONDANSETRON 2MG/ML, 2ML IVPush PRN (02:00)
[2020-06-09] MEDS ORDERED: TIZANIDINE 4MG TABLET PO PRN (02:00)
[2020-06-09] MEDS ORDERED: DOCUSATE 100 MG CAPSULE PO PRN (02:00)
[2020-06-09] MEDS ORDERED: LABETALOL 5MG/ML, 20ML IVPush PRN (02:00)
[2020-06-09] MEDS ORDERED: PROMETHAZINE 25 MG/ML, 1ML IM PRN (02:00)
[2020-06-09] MEDS ORDERED: POLYETHYLENE GLYCOL 17 GM PACKET PO PRN (02:00)
[2020-06-09 02:02] LABS: AMPHETAMINE SCREEN, URINE Negative (Negative); BARBITURATE SCREEN, URINE Negative (Negative); BENZODIAZEPINE SCREEN, URINE Negative (Negative); COCAINE SCREEN, URINE Negative (Negative); METHADONE SCREEN, URINE Negative (Negative); OPIATE SCREEN, URINE Negative (Negative)
[2020-06-09 02:04] LABS: CANNABINOID SCREEN, URINE Negative (Negative)
[2020-06-09 02:07] LABS: FREE T4 (FREE THYROXINE) 1.1 ng/dL (0.76-1.46)
--- NOTE | 2020-06-09 02:38 | NUR ---
REPORT GIVEN TO SONNY DARLING
--- NOTE | 2020-06-09 03:10 | NUR ---
Report given to SONNY Murray.
[2020-06-09 04:10] VITALS: BP 126/74
[2020-06-09] MEDS: SODIUM CHLORIDE 0.9% 1,000 ML IV SCH ×3 (06:37→22:42)
[2020-06-09 06:41] VITALS: BP 134/74
[2020-06-09] MEDS ORDERED: PANTOPRAZOLE 40 MG IV IVPush SCH (07:30)
[2020-06-09] MEDS: TAMSULOSIN 0.4 MG CAP.ER.24H PO SCH (08:35)
[2020-06-09] MEDS: LAMOTRIGINE 200 MG TABLET PO SCH ×2 (08:35→20:57)
[2020-06-09] MEDS ORDERED: NICOTINE 21 MG/24 HR PATCH.TD24 TD ONE (10:00)
[2020-06-09 13:41] VITALS: BP 137/66
[2020-06-09] MEDS: BUTALB/APAP/CAFFEINE 50MG/325MG/40MG PO PRN ×2 (14:28→20:57)
[2020-06-09 19:13] VITALS: BP 141/74
[2020-06-10 01:14] VITALS: BP 148/78
[2020-06-10] MEDS: BUTALB/APAP/CAFFEINE 50MG/325MG/40MG PO PRN (02:39)
[2020-06-10] MEDS: SODIUM CHLORIDE 0.9% 1,000 ML IV SCH (05:00)
[2020-06-10] MEDS ORDERED: PANTOPRAZOLE 40MG TABLET PO SCH (06:00)
[2020-06-10 06:04] LABS: CHLORIDE 107 mmol/L (98-107)
[2020-06-10 06:12] LABS: ALANINE AMINOTRANSFERASE 63 U/L (12-78); ALBUMIN 3.1 g/dL (3.4-5.0); ALKALINE PHOSPHATASE 40 U/L (45-117); ANION GAP 10 mmol/L (5-15); BILIRUBIN,TOTAL 0.7 mg/dL (0.2-1.0); CHOLESTEROL, TOTAL 112 mg/dL (140-239); CREATININE 0.67 mg/dL (0.7-1.3); HDL CHOL % 51 % (26-37); HDL CHOLESTEROL (DIRECT) 57 mg/dL (40-60); LDL CHOLESTEROL,CALCULATED 33 mg/dL (54-169); LDL/HDL RATIO 0.6 (0.5-3.0); TRIGLYCERIDES 108 mg/dL (50-200); VLDL CHOLESTEROL 22 mg/dL (0-25)
[2020-06-10 06:58] VITALS: BP 150/84
[2020-06-10 07:13] LABS: BASOPHILS # (AUTO) 0.03 x10^3/uL (0-0.1); BASOPHILS % (AUTO) 0 % (0-1); EOSINOPHILS # (AUTO) 0.13 x10^3/uL (0-0.4); EOSINOPHILS % (AUTO) 2 % (1-7); LYMPHOCYTES # (AUTO) 1.43 x10^3/uL (1-3.4); LYMPHOCYTES % (AUTO) 23 % (22-44); MD NO; MEAN CORPUSCULAR HGB CONC 31.6 g/dL (33.2-36.2); MEAN PLATELET VOLUME 9.1 fL (7.4-10.4); MONOCYTES # (AUTO) 0.52 x10^3/uL (0.2-0.8); MONOCYTES % (AUTO) 8 % (2-9); NEUTROPHILS # (AUTO) 4.24 x10^3/uL (1.8-6.8); NEUTROPHILS % (AUTO) 67 % (42-75); PLATELET COUNT 189 x10^3/uL (130-400); RED BLOOD COUNT 3.34 x10^6/uL (4.38-5.82); RED CELL DISTRIBUTION WIDTH 21.9 % (9.4-14.8)
[2020-06-10] MEDS ORDERED: POTASSIUM CHLORIDE 20 MEQ TAB.ER.PRT PO ONE (07:30)
[2020-06-10] MEDS: TAMSULOSIN 0.4 MG CAP.ER.24H PO SCH (08:14)
[2020-06-10] MEDS: LAMOTRIGINE 200 MG TABLET PO SCH (08:14)
== END 2020-06-10 12:45 | disposition home health service (06) | DRG 312 ==
LOC: ED 23:27 → EDIP 06-09 00:14 → 5SO 06-09 03:11 → DCLOUNGE 06-10 12:35
PROVIDERS: ADMIT Internal Medicine; ATTEND Hospitalist
DX: I95.1 Orthostatic hypotension (principal); N17.0 Acute kidney failure with tubular necrosis; E87.2 Acidosis; E86.0 Dehydration; E87.6 Hypokalemia; D64.9 Anemia, unspecified; E11.9 Type 2 diabetes mellitus without complications; F17.210 Nicotine dependence, cigarettes, uncomplicated; F31.9 Bipolar disorder, unspecified; G40.909 Epilepsy, unspecified, not intractable, without status epilepticus; I10 Essential (primary) hypertension; I45.10 Unspecified right bundle-branch block; I48.91 Unspecified atrial fibrillation; J44.9 Chronic obstructive pulmonary disease, unspecified; K21.0 Gastro-esophageal reflux disease with esophagitis; K26.9 Duodenal ulcer, unspecified as acute or chronic, without hemorrhage or perforation; K80.20 Calculus of gallbladder without cholecystitis without obstruction; N20.0 Calculus of kidney; N40.0 Benign prostatic hyperplasia without lower urinary tract symptoms; W19.XXXA Unspecified fall, initial encounter; Y92.009 Unspecified place in unspecified non-institutional (private) residence as the place of occurrence of the external cause
CPT/HCPCS: 36415; 70450; 71045; 80053; 80061; 80307; 81003; 83036; 83605; 83735; 84145; 84439; 84443; 84484; 85025; 87040; 93005; 93306; 99285; G0378; J3480; C9113; J7030; J7040

== ENCOUNTER → 2020-07-27 | Outpatient (CLI) | payer MEDICARE ==
[~2020-07-27] MED LIST changes: +AMLO-211 PO; -AMLO10TA8 PO; +MIRT-38 PO; -MIRT30TA PO
== END | disposition home or self-care (01) ==
LOC: STAR 15:51
PROVIDERS: ATTEND Anesthesiology
DX: Z20.828 Contact with and (suspected) exposure to other viral communicable diseases (principal)
CPT/HCPCS: 87635

== ENCOUNTER 2020-08-01 10:29 | Day surgery (SDC) | payer MEDICARE ==
[~2020-08-01] VITALS: Ht 180.3 cm; Wt 71.3 kg
[2020-08-01] MEDS ORDERED: LORA10TA75 PO (11:10)
[2020-08-01] MEDS ORDERED: FLUT9.9S NAS (11:10)
[2020-08-01] MEDS ORDERED: CHLORHEXIDINE 15 ML UDC ONE (11:18)
[2020-08-01] MEDS ORDERED: CHLORHEXIDINE 15 ML UDC MM ONE (11:30)
[2020-08-01] MEDS ORDERED: LACTATED RINGERS 1,000 ML IV SCH (11:30)
[2020-08-01 11:37] VITALS: BP 155/76
[2020-08-01] MEDS ORDERED: PROPOFOL 10 MG/ML, 20ML ONE (13:08)
[2020-08-01] MEDS ORDERED: SUCCINYLCHOLINE 20 MG/ML, 10ML ONE (13:08)
[2020-08-01] MEDS ORDERED: EPHEDRINE 50 MG/ML, 1ML ONE (13:08)
[2020-08-01] MEDS ORDERED: PROMETHAZINE 25 MG/ML, 1ML ONE (14:04)
[2020-08-01] MEDS ORDERED: ONDANSETRON 2MG/ML, 2ML ONE (14:11)
[2020-08-01] MEDS ORDERED: MEPERIDINE/PF 25MG/0.5ML IVPush PRN (14:30)
[2020-08-01] MEDS ORDERED: PROMETHAZINE 25 MG/ML, 1ML IVPush PRN (14:30)
[2020-08-01] MEDS ORDERED: ONDANSETRON 2MG/ML, 2ML IVPush PRN (14:30)
[2020-08-01] MEDS ORDERED: HYDROmorphone 1 MG/ML, 1ML INJ IVPush PRN (14:30)
[2020-08-01] MEDS ORDERED: FENTANYL PF 100 MCG/2ML IV PRN (14:30)
[2020-08-01] MEDS ORDERED: LABETALOL 5MG/ML, 20ML IV PRN (14:30)
[2020-08-01] MEDS ORDERED: HALOPERIDOL 5 MG/ML ONE (14:31)
[2020-08-01] MEDS ORDERED: HALOPERIDOL 5 MG/ML IV ONE (15:00)
== END 2020-08-01 16:00 | disposition home or self-care (01) ==
LOC: OUT 10:29
PROVIDERS: ATTEND Internal Medicine Geriatric Medicine
DX: K22.2 Esophageal obstruction (principal); I10 Essential (primary) hypertension; J44.9 Chronic obstructive pulmonary disease, unspecified; F41.9 Anxiety disorder, unspecified; Z79.899 Other long term (current) drug therapy; Z80.9 Family history of malignant neoplasm, unspecified
CPT/HCPCS: 43237; 43266; 71045; C1769; C1874; J0330; J1630; J2405; J2550; J2704; J3010; J7120; 76000

== ENCOUNTER 2021-03-27 09:25 | Day surgery (SDC) | payer MEDICARE ==
[~2021-03-27] VITALS: Ht 180.3 cm; Wt 69.8 kg
[~2021-03-27 09:25] MED LIST changes: +FLUT9.9S NAS; -FOLI-17 PO; +FOLI1TAB32 PO; -HYDR-3245 PO; +HYDR1TAB53 PO; +LORA10TA75 PO; +MULT-482 PO; -MULT-750 PO; -NICO-487 TD; +NICO-587 TD; -OMEP40CA42 PO; +OMEP40CA8 PO; -OXYC-302 PO; -OXYC-307 PO; +OXYC-380 PO; +OXYC1TAB14 PO; -OXYC5TAB3 PO; +OXYC5TAB98 PO; -VANC1VIA3 PO; +VANC1VIA36 PO
[2021-03-27] MEDS ORDERED: HYDR-3241 PO (10:09)
[2021-03-27 10:13] VITALS: BP 108/74
[2021-03-27] MEDS ORDERED: PANT40TA6 PO (10:22)
[2021-03-27] MEDS ORDERED: CHLORHEXIDINE 15 ML UDC PO ONE (10:30)
[2021-03-27] MEDS ORDERED: LACTATED RINGERS 1,000 ML IV SCH (10:30)
[2021-03-27] MEDS ORDERED: MIDAZOLAM 1 MG/ML, 2ML ONE (10:56)
[2021-03-27] MEDS ORDERED: PROPOFOL 10 MG/ML, 20ML ONE (10:56)
[2021-03-27] MEDS ORDERED: LIDOCAINE-MPF 2% ,5ML ONE (10:56)
[2021-03-27] MEDS ORDERED: DEXAMETHASONE 4 MG/ML, 1ML ONE (11:32)
[2021-03-27] MEDS ORDERED: GLYCOPYRROLATE 0.2MG/1ML, 5ML ONE (11:32)
== END 2021-03-27 14:42 | disposition home or self-care (01) ==
LOC: OUT 09:25
PROVIDERS: ATTEND Internal Medicine Geriatric Medicine
DX: K22.2 Esophageal obstruction (principal); K22.10 Ulcer of esophagus without bleeding; I10 Essential (primary) hypertension; K21.9 Gastro-esophageal reflux disease without esophagitis; F17.210 Nicotine dependence, cigarettes, uncomplicated; Z20.822 Contact with and (suspected) exposure to COVID-19; Z79.891 Long term (current) use of opiate analgesic; Z79.899 Other long term (current) drug therapy
CPT/HCPCS: 43266; 71045; 74360; 87635; 93005; C1769; C1874; J1100; J2250; J2704; J7120; 76000

== ENCOUNTER 2021-03-27 17:21 | Emergency (ER) | payer MEDICARE ==
[~2021-03-27] VITALS: Ht 180.3 cm; Wt 70.0 kg
[~2021-03-27 17:21] MED LIST changes: +HYDR-3241 PO
--- NOTE | 2021-03-27 17:55 | NUR ---
BLADDER SCAN SHOWS >750 MLS. PT REPORTS "I HAVEN'T BEEN ABLE TO PEE SINCE 9 AM
[2021-03-27] MEDS ORDERED: LIDOCAINE 2%,20 ML JEL.PF.APP MM ONE ×2 (17:57→18:00)
--- NOTE | 2021-03-27 18:15 | NUR ---
BOLIVAR PLACED, PT TOLERATED WELL. CLEAR YELLOW OUTPUT
[2021-03-27 18:41] LABS: MICROSCOPIC NOT IND
[2021-03-27 20:00] VITALS: BP 142/88
== END 2021-03-27 20:16 | disposition home or self-care (01) ==
LOC: ED 20:10
DX: R33.9 Retention of urine, unspecified (principal); I10 Essential (primary) hypertension; I11.9 Hypertensive heart disease without heart failure; E78.00 Pure hypercholesterolemia, unspecified; E78.5 Hyperlipidemia, unspecified; J44.9 Chronic obstructive pulmonary disease, unspecified; I48.91 Unspecified atrial fibrillation; G40.909 Epilepsy, unspecified, not intractable, without status epilepticus
CPT/HCPCS: 51702; 81003; 99284; 99285

== ENCOUNTER 2021-03-28 09:46 | Emergency (ER) | payer MEDICARE ==
[~2021-03-28] VITALS: Ht 180.3 cm; Wt 70.0 kg
--- NOTE | 2021-03-28 11:12 | NUR ---
THIS IS A 70 YO M W/ C/O CATHETER LEAKING AT INSERTION SITE. PT REPORTS CATHETER PLACED YESTERDAY S/P ENDOSCOPY W/ STENT. PT REPORTS HAS HAD RETENTION IN THE PAST AFTER ANESTHESIA. PT RESTING ON [place] W/ CALL LIGHT IN REACH AND SIDE RAILS UPX2. RESP EVEN AND UNLABORED, NADN.
[2021-03-28 11:57] VITALS: BP 140/92
--- NOTE | 2021-03-28 13:08 | NUR ---
300 ML IN AND OUT FOR BLADDER IRRIGATION. PER JOANNA HANNAH, OK TO PULL BOLIVAR AND SEE IF PT IS ABLE TO PEE ON HIS OWN. BOLIVAR REMOVED, PT PROVIDED W/ WATER AND URINAL.
--- NOTE | 2021-03-28 13:25 | NUR ---
70ML OUT S/P CATH REMOVAL.
[2021-03-28 13:30] LABS: MICROSCOPIC AUTO
--- NOTE | 2021-03-28 14:00 | NUR ---
TOTAL 120ML URINE OUTPUT.
--- NOTE | 2021-03-28 14:09 | NUR ---
Patient given discharge instructions and they have confirmed that they understand the instructions. Patient ambulatory with steady gait.
== END 2021-03-28 14:11 | disposition home or self-care (01) ==
LOC: ED 12:01
DX: N40.1 Benign prostatic hyperplasia with lower urinary tract symptoms (principal); R33.8 Other retention of urine; N30.01 Acute cystitis with hematuria; F17.210 Nicotine dependence, cigarettes, uncomplicated; E11.9 Type 2 diabetes mellitus without complications; K21.9 Gastro-esophageal reflux disease without esophagitis; J44.9 Chronic obstructive pulmonary disease, unspecified; I48.91 Unspecified atrial fibrillation; M19.90 Unspecified osteoarthritis, unspecified site; I10 Essential (primary) hypertension; E78.5 Hyperlipidemia, unspecified; E78.00 Pure hypercholesterolemia, unspecified; Z87.11 Personal history of peptic ulcer disease
CPT/HCPCS: 51700; 81001; 87086; 99284; 99406